=== PATIENT | female | born 1935 | race Caucasian/White ===

== ENCOUNTER 2016-12-07 09:11 | Outpatient (CLI) | payer MEDICARE, OTHER | END 2016-12-07 09:12 | disposition home or self-care (01) | DX: Z13.820 Encounter for screening for osteoporosis (principal); M85.88 Other specified disorders of bone density and structure, other site; N95.8 Other specified menopausal and perimenopausal disorders ==

== ENCOUNTER 2018-01-07 21:00 | Inpatient (IN) | payer MEDICARE, OTHER ==
[2018-01-07] MEDS ORDERED: ASPIRIN CHEW 81 MG TABLET PO STA (21:12)
[2018-01-07] MEDS ORDERED: MORPHINE 10 MG/ML VIAL IVP STA (21:49)
[2018-01-07 21:51] LABS: BASOPHILS % (AUTO) 0.2 %; EOSINOPHILS % (AUTO) 0.2 %; HGB - HEMOGLOBIN 14.6 g/dL (12.0-16.0); MEAN CORPUSCULAR HEMOGLOBIN 31.4 pg (27.0-31.0); MEAN CORPUSCULAR HGB CONC 33.9 g/dL (32.0-36.0); MEAN CORPUSCULAR VOLUME 92.7 fL (81.0-99.0); MEAN PLATELET VOLUME 8.6 fL (7.9-10.8); MONOCYTES % (AUTO) 2.3 %; NEUTROPHILS % (AUTO) 94.3 %; PLT - PLATELET COUNT 242 10^3/uL (130-450); RED BLOOD COUNT 4.66 10^6/uL (4.20-5.40); RED CELL DISTRIBUTION WIDTH 12.8 % (12.0-15.0); WHITE BLOOD COUNT 19.1 x10^3/uL (4.8-10.8)
[2018-01-07 21:53] LABS: ABNORMAL LYMPHS % (MANUAL) 0 %
[2018-01-07 22:14] LABS: ALBUMIN 4.3 g/dL (3.2-5.5); ALBUMIN/GLOBULIN RATIO 1.3 (1.0-2.2); BILIRUBIN,TOTAL 0.8 mg/dL (0.2-1.0); CALCIUM 8.6 mg/dL (8.5-10.3); CREATININE 0.8 mg/dL (0.4-1.0); TOTAL PROTEIN 7.5 g/dL (6.7-8.2)
[2018-01-07 22:18] LABS: BAND NEUTROPHILS % (MANUAL) 4 %; EOSINOPHILS # (MANUAL) 0.2 10^3/uL (0-0.7); LYMPHOCYTES % (MANUAL) 5 %; MONOCYTES # (MANUAL) 0.6 10^3/uL (0.0-1.0); NEUTROPHILS # (MANUAL) 17.4 10^3/uL (1.5-6.6); NEUTROPHILS % (MANUAL) 87 %
[2018-01-07 22:20] LABS: PLATELET ESTIMATE, MANUAL NORMAL (130-450,000) (NORMAL); PLATELET MORPHOLOGY RARE GIANT PLATELETS (NORMAL); RBC MORPHOLOGY (MULTIPLE) NORMAL APPEARANCE (NORMAL)
[2018-01-07 22:21] LABS: DIFFERENTIAL COMMENT MANUAL DIFFERENTIAL
--- NOTE | 2018-01-07 22:25 | XRAY Preliminary Report ---
Exam: XR CHEST 2 VIEW X-RAY IMPRESSION: Normal 2-view chest radiography. [facility] SITE ID: [id number]
--- NOTE | 2018-01-07 22:25 | XRAY Report ---
EXAM: CHEST RADIOGRAPHY EXAM DATE: 01/07/2018 10:09 PM. CLINICAL HISTORY: Chest pain. COMPARISON: 01/07/2018 chest x-ray. TECHNIQUE: 2 views. FINDINGS: Lungs/Pleura: No focal opacities evident. No pleural effusion. No pneumothorax. Normal volumes. Mediastinum: Heart and mediastinal contours are unremarkable. Other: None. IMPRESSION: Normal 2-view chest radiography. [facility] Referring Provider Line: [phone] SITE ID: [id number]
[2018-01-07] MEDS ORDERED: IOPAMIDOL-300 100 ML VIAL ONE (22:51)
[2018-01-07 22:52] LABS: BILIRUBIN,URINE NEGATIVE (NEGATIVE); GLUCOSE, URINE (UA) NEGATIVE (NEGATIVE); KETONES,URINE (UA) 15 mg/dL (NEGATIVE); LEUKOCYTE ESTERASE, URINE SMALL (NEGATIVE); NITRITE,URINE NEGATIVE (NEGATIVE); OCCULT BLOOD,URINE TRACE-LYSE (NEGATIVE); PROTEIN,URINE NEGATIVE (NEGATIVE); UROBILINOGEN,URINE 0.2 (NORMAL) E.U./dL (NORMAL)
[2018-01-07] MEDS ORDERED: IOPAMIDOL-300 100 ML VIAL IVP ONE (23:20)
[2018-01-07 23:21] LABS: CLARITY,URINE CLEAR (CLEAR)
[2018-01-07 23:23] LABS: BACTERIA,URINE Rare /HPF (None Seen); RBC,URINE 0-5 /HPF (0-5); SQUAMOUS EPITHELIAL CELL,UR RARE Squamous (<= Few)
--- NOTE | 2018-01-07 23:57 | CT Report ---
EXAM: CT ANGIOGRAM CHEST EXAM DATE: 01/07/2018 11:33 PM. CLINICAL HISTORY: Chest pain, elevated dimer. COMPARISON: None. TECHNIQUE: Routine helical imaging was performed through the chest in the pulmonary arterial phase. I V Contrast: 80 mL Isovue 300. Reconstructions: Coronal 3-D MIP reconstructions.Sagittal and coronal. In accordance with CT protocol optimization, one or more of the following dose reduction techniques w ere utilized for this exam: automated exposure control, adjustment of mA and/or KV based on patient s ize, or use of iterative reconstructive technique. FINDINGS: Pulmonary Arteries: Diagnostic quality: Adequate through the segmental arteries. No evidence for acute or chronic pulmona ry emboli. RV/LV is within normal limits. There is no interventricular septal bowing. There is no reflux of cont rast material in the IVC. Lungs/Pleura: There is a 6 x 4 mm nodule in the right lower lobe. Mild centrilobular emphysema seen. No lobar consolidation, pleural effusion or pneumothorax. Mediastinum: Normal. No cardiac enlargement or adenopathy. Thoracic Aorta: Unremarkable. Upper Abdomen: Unremarkable. Other: None. IMPRESSION: 1. No pulmonary embolism or acute airspace disease. 2. Right lower lobe 6 mm nodule. Recommend follow-up of the described nodule(s) according to the following guidelines: Fleischner Society Recommendations 2017 MacMahon et al. Radiology 2017 Solid Nodules-Low Risk Patients: <6 mm (single or multiple) - No routine follow-up* 6-8 mm (single) -CT at 6-12 months, then consider CT at 18-24 months 6-8mm (multiple) -CT at 3-6 months, then consider at CT 18-24 months >8 mm (single) -Consider CT, PET/CT, or tissue sampling at 3 months >8 mm (multiple) -CT at 3-6 months, then consider CT at 18-24 months Solid Nodules-High Risk Patients: <6 mm (single or multiple) -Optional CT at 12 months* 6-8 mm (single) -CT at 6-12 months, then CT at 18-24 months 6-8mm (multiple) -CT at 3-6 months, then CT at 18-24 months >8 mm (single) -Consider CT, PET/CT, or tissue sampling at 3 months >8 mm (multiple) -CT at 3-6 months, then at 18-24 months *Nodules < 6mm do not require routine follow-up, but suspicious nodule morphology, upper lobe locatio n, or both may warrant 12 month follow-up Subsolid nodules: <6 mm (single, GG or part solid) -No routine follow-up >=6 mm (single GG) -CT at 6-12 months to confirm, then CT q2 years until 5 years >=6 mm (single part solid) -CT at 3-6 months to confirm, if unchanged and solid <6mm, annual CT for 5 years <6 mm (multiple GG or part solid) -CT at 3-6 months. If stable, consider CT at 2 and 4 years >=6 mm (multiple GG or part solid) -CT at 3-6 months. Subsequent management based on most suspicious nodule(s). Consider follow-up at 2 and 4 years for certain suspicious nodules <6mm. If solid component develo ps or growth, consider resection. [facility] Referring Provider Line: [phone] SITE ID: [id number]
--- NOTE | 2018-01-08 00:06 | CT Report ---
EXAM: CT ABDOMEN AND PELVIS EXAM DATE: 01/07/2018 11:34 PM. CLINICAL HISTORY: Abd pain, elevated lipase, leukocytosis,. COMPARISONS: 08/17/2006 CT. TECHNIQUE: Routine helical CT imaging was performed through the abdomen and pelvis. IV contrast: Yes. Enteric contrast: No. Reconstructions: Coronal and sagittal. In accordance with CT protocol optimization, one or more of the following dose reduction techniques w ere utilized for this exam: automated exposure control, adjustment of mA and/or KV based on patient s ize, or use of iterative reconstructive technique. FINDINGS: Lung Bases: Unremarkable. Liver: Normal. No masses. Gallbladder/Bile Ducts: Unremarkable. Spleen: Normal. Pancreas: There is a 1.9 x 1.2 cm cystic lesion within the tail of the pancreas and a second 1.2 x 1. 2 cm lesion distally. Mild peripancreatic inflammatory stranding present. Adrenal Glands: Normal. Kidneys: Images acquired during the renal excretory phase. There is no hydronephrosis or obvious guy l mass. Peritoneal Cavity/Bowel: Normal. No free fluid, free air or adenopathy. No masses or acute inflammato ry process. No evidence of appendicitis. Pelvic Organs: The uterus has been removed. No pelvic mass, lymphadenopathy or fluid collections. Vasculature: No aneurysms or other significant abnormality. Bones: No significant abnormality. Other: None. IMPRESSION: 1. Pancreatic head pancreatitis. 2. There are 2 cystic lesions within the pancreatic tail possibly secondary to dilated pancreatic franc t branches. Pancreas MRI/MRCP recommended for further characterization. [facility] Referring Provider Line: [phone] SITE ID: [id number]
--- NOTE | 2018-01-08 00:06 | CT Preliminary Report ---
Exam: CT ABDOMEN/PELVIS W/O IMPRESSION: 1. Pancreatic head pancreatitis. 2. There are 2 cystic lesions within the pancreatic tail possibly secondary to dilated pancreatic franc t branches. Pancreas MRI/MRCP recommended for further characterization. [facility] SITE ID: [id number]
[2018-01-08] MEDS ORDERED: SODIUM CHLORIDE 0.9% 1,000 ML IV ONE (00:09)
--- NOTE | 2018-01-08 00:16 | ED Physician Documentation ---
PD HPI CHEST PAIN - Stated complaint Stated Complaint: CHEST PX - Chief complaint Chief Complaint: Cardiac - History obtained from History obtained from: Patient, Family - History of Present Illness Timing - onset: Today Timing - onset during: Rest Timing - details: Gradual onset, Still present Quality: Pressure, Aching, Sharp Location: Left chest, Right chest Radiation: Back Worsened by: No: Exertion, Inspiration Associated symptoms: No: Shortness of air, Diaphoresis, Nausea, Vomiting, Feeling faint / dizzy Similar symptoms before: Has not had sx before Recently seen: Not recently seen - Additional information Additional information: Patient is an 82 year old female with a history of htn who is presenting to the emergency department for chest and back pain. Patient states that the pain started earlier this afternoon when she was visiting [place] for a anniversary. The pain was in the back and the left chest that radiated across to the right. Patient states that the pain has persisted throughout the day so she came in for evaluation. Review of Systems Constitutional: denies: Fever, Chills Eyes: reports: Reviewed and negative Ears: reports: Reviewed and negative Nose: reports: Reviewed and negative Respiratory: denies: Dyspnea, Cough GI: reports: Abdominal Pain, Nausea. 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 HEENT: Cataracts - Present Medications Home Medications: Ambulatory Orders Medication Instructions Recorded Confirmed Levothyroxine [Synthroid] 25 mcg PO QDAC 01/08/18 Losartan [Cozaar] 25 mg PO BID 01/08/18 - Allergies Allergies/Adverse Reactions: Allergies Allergy/AdvReac Type Severity Reaction Status Date / Time No Known Drug Allergies Allergy Verified 01/07/18 21:15 - Social History Does the pt smoke?: No Smoking Status: Never smoker Does the pt drink ETOH?: No Does the pt have substance abuse?: No - Immunizations Immunizations are current?: Yes PD ED PE NORMAL - Vitals Vital signs reviewed: Yes - General General: Alert and oriented X 3 - HEENT HEENT: Atraumatic - Neck Neck: No JVD - Cardiac Cardiac: RRR, No murmur - Derm Derm: Normal color - Extremities Extremities: No edema, No calf tenderness / cord - Neuro Neuro: Alert and oriented X 3, No motor deficit Eye Opening: Spontaneous - Psych Psych: Normal mood PD ED PE EXPANDED - General General: Alert, In Pain - Respiratory Respiratory: No: Wheezing, Rhonchi - Abdomen Abdomen: Tender to palpation, RUQ, Epigastric, LUQ. No: Rebound Results - Vitals Vitals: Vital Signs - 24 hr 01/07/18 01/07/18 01/07/18 21:14 22:10 22:49 Temperature 36.7 C Heart Rate 71 59 L 59 L Respiratory 19 12 13 Rate Blood Pressure 234/81 H 189/79 H 175/129 H O2 Saturation 99 96 97 01/08/18 00:06 Temperature Heart Rate 59 L Respiratory 15 Rate Blood Pressure 163/71 H O2 Saturation 95 Oxygen O2 Source Room air - EKG (time done) 2119 Rate: Rate (enter#) (63) Rhythm: NSR [place]: Normal Intervals: Normal CT QRS: Normal Ischemia: Normal ST segments Compare to prior EKG: Old EKG unavailable - Labs Labs: Laboratory Tests 01/07/18 01/07/18 01/07/18 21:25 21:25 21:25 WBC 19.1 H RBC 4.66 Hgb 14.6 Hct 43.2 MCV 92.7 MCH 31.4 H MCHC 33.9 RDW 12.8 Plt Count 242 MPV 8.6 Neut # Not Reportable Lymph # Not Reportable Lee # Not Reportable Eos # Not Reportable Baso # Not Reportable Absolute Nucleated RBC Not Reportable Total Counted 100 Band Neuts % (Manual) 4 Abnorm Lymph % (Manual) 0 Nucleated RBC % Not Reportable Neutrophils # (Manual) 17.4 H Lymphocytes # (Manual) 1.0 L Monocytes # (Manual) 0.6 Eosinophils # (Manual) 0.2 Basophils # (Manual) 0.0 Differential Comment MANUAL DIFFERENTIAL WBC Morphology 1+ HYPERSEG NEUT Platelet Estimate NORMAL (130-450,000) Platelet Morphology RARE GIANT PLATELETS RBC Morph Micro Appear NORMAL APPEARANCE D-Dimer Sodium 129 L Potassium 3.5 Chloride 94 L Carbon Dioxide 23 Anion Gap 12.0 BUN 13 Creatinine 0.8 Estimated GFR (MDRD) 69 L Glucose 159 H Calcium 8.6 Total Bilirubin 0.8 AST 28 ALT 26 Alkaline Phosphatase 66 Troponin I < 0.04 B-Natriuretic Peptide Total Protein 7.5 Albumin 4.3 Globulin 3.2 Albumin/Globulin Ratio 1.3 Lipase 4464 H Urine Color Urine Clarity Urine pH Ur Specific [place] Urine Protein Urine Glucose (UA) Urine Ketones Urine Occult Blood Urine Nitrite Urine Bilirubin Urine Urobilinogen Ur Leukocyte Esterase Urine RBC Urine WBC Ur Squamous Epith Cells Urine Bacteria Ur Microscopic Review Urine Culture Comments 01/07/18 01/07/18 01/07/18 21:25 21:25 22:42 WBC RBC Hgb Hct MCV MCH MCHC RDW Plt Count MPV Neut # Lymph # Lee # Eos # Baso # Absolute Nucleated RBC Total Counted Band Neuts % (Manual) Abnorm Lymph % (Manual) Nucleated RBC % Neutrophils # (Manual) Lymphocytes # (Manual) Monocytes # (Manual) Eosinophils # (Manual) Basophils # (Manual) Differential Comment WBC Morphology Platelet Estimate Platelet Morphology RBC Morph Micro Appear D-Dimer 589.3 H Sodium Potassium Chloride Carbon Dioxide Anion Gap BUN Creatinine Estimated GFR (MDRD) Glucose Calcium Total Bilirubin AST ALT Alkaline Phosphatase Troponin I B-Natriuretic Peptide 76 Total Protein Albumin Globulin Albumin/Globulin Ratio Lipase Urine Color YELLOW Urine Clarity CLEAR Urine pH 7.0 Ur Specific [place] 1.015 Urine Protein NEGATIVE Urine Glucose (UA) NEGATIVE Urine Ketones 15 H Urine Occult Blood TRACE-LYSE Urine Nitrite NEGATIVE Urine Bilirubin NEGATIVE Urine Urobilinogen 0.2 (NORMAL) Ur Leukocyte Esterase SMALL H Urine RBC 0-5 Urine WBC >25 H Ur Squamous Epith Cells RARE Squamous Urine Bacteria Rare Ur Microscopic Review INDICATED Urine Culture Comments INDICATED - Rads (name of study) ct angio chest Radiology: Final report received (no PE) Ct abd pelvis Radiology: Final report received (pancreatitis with pancreatic cyst) PD MEDICAL DECISION MAKING - ED course Complexity details: reviewed old records, reviewed results, re-evaluated patient , considered differential, d/w patient, d/w family, d/w [employer] business [employer] consultant ED course: patient was seen and examined at bedside. Iv access was gained and labs were drawn. ekg was performed and showed normal sinus. Patient was treated with aspirin for pain. When patient's diagnostics came back patient's d-dimer was elevated. patient's pain persisted and patient was treated with morphine. CT angio was ordered. Patient was also found to have elevated lipase so CT abd pelvis was also ordered. Patient's findings were consistent with pancreatitis. Patient was treated with a fluid bolus, but did not require further pain medication. Hospitalist was contacted and the case was discussed with her. Patient was admitted to the hospital for further evaluation and care. Departure - Departure Disposition: 66 [facility] DC/Xfer Clinical Impression: Pancreatitis Condition: Stable
--- NOTE | 2018-01-08 00:45 | HISTORY & PHYSICAL EXAMINATION ---
Chief Complaint - Chief Complaint Chief Complaint: chest and back pain History of Present Illness - Admitted From Admitted From:: home - History Obtained From History obtained from: patient, , ED physician Exam Limitations: none noted - History of Present Illness HPI Comment/Other: Mrs. Dora Del Rio is a very pleasant 82-year-old female who was vacationing with her in [facility] earlier today, celebrating their 60th anniversary, which she began to have back pain which did not go away. The patient's was concerned and suggested that they return to the [place] a day early in the patient presented to [facility] emergency department with these complaints. A workup found her to have a lipase in excess of 4000 and a CAT scan of the abdomen found to cystic lesions in the head of the pancreas and generalized inflammation in the pancreas suggestive of pancreatitis. The patient will be admitted to a medical surgical bed, given IV fluid replacement, and her electrolytes will be corrected.We will start her on a soft diet tomorrow if she feels up to it. 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 - Substance History Use: Uses substance without health or social issues: NONE Abuse: Recurrent use of substance despite neg consequences: NONE Dependence: Experiences withdrawal or developed tolerances: NONE - POLST Patient has POLST: Yes POLST Status: DNR Meds/Allgy - Allergies Allergies/Adverse Reactions: Allergies Allergy/AdvReac Type Severity Reaction Status Date / Time No Known Drug Allergies Allergy Verified 01/07/18 21:15 Review of Systems - Constitutional Constitutional: reports: Poor appetite. denies: Fever, Chills, Night sweats - Eyes Eyes: denies: Pain, Blurred vision, Vision loss, Dipolpia - Ears, Nose & Throat Ears, Nose & Throat: denies: Ear pain, Tinnitus, Vertigo, Nasal pain, Nosebleeds , Sore throat - Cardiovascular Cariovascular: reports: Chest pain. denies: Irregular heart rate, Palpitations , Edema, Syncope - Respiratory Respiratory: denies: Cough, Sputum production, Wheezing, Hemoptysis, Orthopnea, SOB at rest, SOB with exertion - Gastrointestinal Gastrointestinal: reports: Abdominal pain, Nausea. denies: Abdominal distention , Constipation, Diarrhea, Change in bowel habits, Rectal bleeding - Genitourinary Genitourinary: denies: Dysuria, Frequency, Urgency, Hematuria - Musculoskeletal Musculoskeletal: reports: Back pain. denies: Muscle pain, Muscle aches, Stiffness, Muscle weakness - Integumentary Integumentary: denies: Rash, Pruritis, Lesions, Dryness - Neurological Neurological: denies: General weakness, Focal weakness, Headache, Dizziness - Psychiatric Psychiatric: denies: Depression, Anxiety, Suicidal, Hallucinations - Endocrine Endocrine: denies: Polyuria, Polydypsia, Polyphagia - Hematologic/Lymphatic Hematologic/Lymphatic: denies: Anemia, Bruising, Petechiae, Blood clots, Lymphadenopathy, Bleeding tendencies - All Other Systems All Other Systems: reports: Reviewed and negative Exam - Vital Signs Reviewed Vital Signs: Yes Vital Signs: Vital Signs x48h Temp Pulse Resp BP Pulse Ox 01/08/18 00:06 59 L 15 163/71 H 95 01/07/18 22:49 59 L 13 175/129 H 97 01/07/18 22:10 59 L 12 189/79 H 96 01/07/18 21:14 36.7 C 71 19 234/81 H 99 - Physical Exam General Appearance: positive: No acute distress, Alert, Anxious Eyes Bilateral: positive: Normal inspection, PERRL, EOMI, No lid inflammation, Conjunctivae nml, No scleral icterus ENT: positive: ENT inspection nml, Pharynx nml, No signs of dehydration Neck: positive: Nml inspection, Thyroid nml, No JVD, Trachea midline. negative : Thyromegaly Respiratory: positive: Chest non-tender, No respiratory distress, Breath sounds nml. negative: Wheezes, Rales, Rhonchi Cardiovascular: positive: Regular rate & rhythm, No murmur, No gallop Peripheral Pulses: positive: 1+ Abdomen: positive: No organomegaly, Nml bowel sounds, No distention, Tenderness (mild). negative: Guarding, Rebound Back: positive: Nml inspection. negative: CVA tenderness (R), CVA tenderness (L ) Skin: positive: Color nml, No rash, Warm, Dry. negative: Cyanosis Extremities: positive: Non-tender, Full ROM, Nml appearance, No pedal edema Neurologic/Psychiatric: positive: Oriented x3, CN's nml (2-12), Motor nml, Sensation nml, Mood/affect nml Conclusion/Plan - Problem List (1) Pancreatitis Conclusion/Plan: The patient's chief complaint has been back pain with some chest pain. She says the pain is a little bit better at this time but she is diagnosed with pancreatitis. We will admit her to medical surgical bed, give her IV fluids, and restart her on a soft diet sometime tomorrow afternoon if she remains stable. At this time it does not appear as if there is necrotizing pancreatitis and so we will continue to monitor. (2) Hypertension Conclusion/Plan: The patient takes losartan and I have restarted this at 50 mg a day. I await pharmacy reconciliation of the patient's other medications. (3) Hypothyroidism Conclusion/Plan: We will wait until we have the dosage before we restart the patient's levothyroxine. At this time she does not appear to be hyper or hypothyroid. - Lab Results Lab results reviewed: Yes Fish Bones: 01/07/18 21:25 01/07/18 21:25 - Diagnostic Imaging Results Diagnostic Imaging Results: positive: Final report reviewed Diagnostic Imaging Results Comments: EXAM: CT ABDOMEN AND PELVIS EXAM DATE: 01/07/2018 11:34 PM. CLINICAL HISTORY: Abd pain, elevated lipase, leukocytosis,. COMPARISONS: 08/17/2006 CT. TECHNIQUE: Routine helical CT imaging was performed through the abdomen and pelvis. IV contrast: Yes. Enteric contrast: No. Reconstructions: Coronal and sagittal. In accordance with CT protocol optimization, one or more of the following dose reduction techniques were utilized for this exam: automated exposure control, adjustment of mA and/or KV based on patient size, or use of iterative reconstructive technique. FINDINGS: Lung Bases: Unremarkable. Liver: Normal. No masses. Gallbladder/Bile Ducts: Unremarkable. Spleen: Normal. Pancreas: There is a 1.9 x 1.2 cm cystic lesion within the tail of the pancreas and a second 1.2 x 1.2 cm lesion distally. Mild peripancreatic inflammatory stranding present. Adrenal Glands: Normal. Kidneys: Images acquired during the renal excretory phase. There is no hydronephrosis or obvious renal mass. Peritoneal Cavity/Bowel: Normal. No free fluid, free air or adenopathy. No masses or acute inflammatory process. No evidence of appendicitis. Pelvic Organs: The uterus has been removed. No pelvic mass, lymphadenopathy or fluid collections. Vasculature: No aneurysms or other significant abnormality. Bones: No significant abnormality. Other: None. IMPRESSION: 1. Pancreatic head pancreatitis. 2. There are 2 cystic lesions within the pancreatic tail possibly secondary to dilated pancreatic duct branches. Pancreas MRI/MRCP recommended for further characterization. EXAM: CT ANGIOGRAM CHEST EXAM DATE: 01/07/2018 11:33 PM. CLINICAL HISTORY: Chest pain, elevated dimer. COMPARISON: None. TECHNIQUE: Routine helical imaging was performed through the chest in the pulmonary arterial phase. IV Contrast: 80 mL Isovue 300. Reconstructions: Coronal 3-D MIP reconstructions.Sagittal and coronal. In accordance with CT protocol optimization, one or more of the following dose reduction techniques were utilized for this exam: automated exposure control, adjustment of mA and/or KV based on patient size, or use of iterative reconstructive technique. FINDINGS: Pulmonary Arteries: Diagnostic quality: Adequate through the segmental arteries. No evidence for acute or chronic pulmonary emboli. RV/LV is within normal limits. There is no interventricular septal bowing. There is no reflux of contrast material in the IVC. Lungs/Pleura: There is a 6 x 4 mm nodule in the right lower lobe. Mild centrilobular emphysema seen. No lobar consolidation, pleural effusion or pneumothorax. Mediastinum: Normal. No cardiac enlargement or adenopathy. Thoracic Aorta: Unremarkable. Upper Abdomen: Unremarkable. Other: None. IMPRESSION: 1. No pulmonary embolism or acute airspace disease. 2. Right lower lobe 6 mm nodule. Recommend follow-up of the described nodule(s) according to the following guidelines: Fleischner Society Recommendations 2017 MacMahon et al. Radiology 2017 Solid Nodules-Low Risk Patients: <6 mm (single or multiple) - No routine follow-up* 6-8 mm (single) -CT at 6-12 months, then consider CT at 18-24 months 6-8mm (multiple) -CT at 3-6 months, then consider at CT 18-24 months >8 mm (single) -Consider CT, PET/CT, or tissue sampling at 3 months >8 mm (multiple) -CT at 3-6 months, then consider CT at 18-24 months Solid Nodules-High Risk Patients: <6 mm (single or multiple) -Optional CT at 12 months* 6-8 mm (single) -CT at 6-12 months, then CT at 18-24 months 6-8mm (multiple) -CT at 3-6 months, then CT at 18-24 months >8 mm (single) -Consider CT, PET/CT, or tissue sampling at 3 months >8 mm (multiple) -CT at 3-6 months, then at 18-24 months *Nodules < 6mm do not require routine follow-up, but suspicious nodule morphology, upper lobe location, or both may warrant 12 month follow-up Subsolid nodules: <6 mm (single, GG or part solid) -No routine follow-up >=6 mm (single GG) -CT at 6-12 months to confirm, then CT q2 years until 5 years >=6 mm (single part solid) -CT at 3-6 months to confirm, if unchanged and solid <6mm, annual CT for 5 years <6 mm (multiple GG or part solid) -CT at 3-6 months. If stable, consider CT at 2 and 4 years >=6 mm (multiple GG or part solid) -CT at 3-6 months. Subsequent management based on most suspicious nodule(s). Consider follow-up at 2 and 4 years for certain suspicious nodules <6mm. If solid component develops or growth, consider resection. Core Measures - Anticipated LOS I expect patient to be DC'd or transferred within 96 hours.: Yes - DVT/VTE - Prophylaxis VTE/DVT Device ordered at admit?: Yes
[2018-01-08] MEDS ORDERED: PROCHLORPERAZINE 10 MG/2 ML VIAL IVP PRN (00:50)
[2018-01-08] MEDS ORDERED: HYDROmorphone 0.5 MG/0.5 ML SYRINGE IVP PRN (00:50)
[2018-01-08] MEDS: D5.45NS W/20 MEQ KCL 1,000 ML IV SCH ×3 (03:06→21:59)
[2018-01-08] MEDS: LOSARTAN 50 MG TABLET PO SCH ×2 (03:06→09:27)
[2018-01-08] MEDS: SODIUM CHLORIDE FLUSH 0.9% 10 ML SYRINGE IVP SCH ×3 (03:06→18:32)
[2018-01-08 05:29] LABS: HGB - HEMOGLOBIN 13.5 g/dL (12.0-16.0); MEAN CORPUSCULAR HEMOGLOBIN 31.1 pg (27.0-31.0); MEAN CORPUSCULAR VOLUME 94.3 fL (81.0-99.0); MEAN PLATELET VOLUME 8.4 fL (7.9-10.8); RED BLOOD COUNT 4.35 10^6/uL (4.20-5.40); WHITE BLOOD COUNT 14.5 x10^3/uL (4.8-10.8)
[2018-01-08 06:08] LABS: CALCIUM 7.6 mg/dL (8.5-10.3); CREATININE 0.6 mg/dL (0.4-1.0)
[2018-01-08] MEDS: SODIUM CHLORIDE 1 GM TABLET PO SCH ×2 (07:12→09:23)
--- NOTE | 2018-01-08 08:19 | PROVIDER PROGRESS NOTE ---
Assessment/Plan - Problem List (1) Pancreatitis Qualifiers: Chronicity: acute Pancreatitis type: unspecified pancreatitis type Assessment/Plan: The patient was celebrating her wedding anniversary with her Solo in [place] and had an acute onset of flank, and abdominal pain. An MRCP was completed and showed edema adjacent to the pancreatic head compatible with acute pancreatitis, a 4.4 cm amorphous fluid collection that may related to pancreatic ductal disruption, and a potential sidebranch IPMNs. General surgery , Dr. Culver was called to review case and recommends an abdominal limited US study to rule our gall bladder involvement. Also to check triglycerides and cholesterol levels. Plan: Follow recommendations, keep on a CL diet, IVFs, hold home meds, and review again tomorrow. (2) Hypertension Assessment/Plan: The patient has a history of this and takes Losartan at home. A summary of drug -induced acute pancreatitits based on drug class shows Larsartan and Alendronate as part of this list, so they have been on hold. Her blood pressures have been elevated today (148/63), so scheduled IV hydralazine has been added. Plan: Continue current plan, obtain a bedside echocardiogram to determine which antihypertensive medication to use based on results. Monitor vital signs. (3) Hypothyroidism Assessment/Plan: The patient has a known history of this and normally takes Synthroid at home. A TSH is pending, Synthroid is on hold until results come back. Plan: Continue home dose if TSH is WNL. - Current Meds Current Meds: Current Medications Generic Name Dose Route Start Last Admin Trade Name Freq PRN Reason Stop Dose Admin Potassium Chloride/Dextrose/Sod Cl 1,000 mls @ 125 mls/hr 01/08/18 01:00 03:06 D5.45ns W/20 Meq Kcl IV 125 mls/hr .Q8H MAYO Administration Losartan Potassium 50 mg 01/08/18 01:00 01/08/18 03:06 Cozaar PO 50 mg DAILY MAYO Administration Sodium Chloride 10 ml 01/08/18 01:00 01/08/18 03:06 Normal Saline Flush 0.9% IVP 10 ml 0100,[id number],1700 MAYO Administration Sodium Chloride 1 gm 01/08/18 07:00 01/08/18 07:12 Salt Tab PO 1 gm DAILY MAYO Administration - Lab Result Lab results reviewed: Yes Fish Bone Diagrams: 01/09/18 05:45 01/09/18 05:45 - EKG Results EKG Interpreted Independently: Yes EKG Comparison: Unchanged from prior EKG - Diagnostic Imaging Results Diagnostic Imaging Results: Prelim report reviewed, Final report reviewed Diagnostic Imaging Results Comments: EXAM: CT ABDOMEN AND PELVIS EXAM DATE: 01/07/2018 11:34 PM. CLINICAL HISTORY: Abd pain, elevated lipase, leukocytosis,. COMPARISONS: 08/17/2006 CT. TECHNIQUE: Routine helical CT imaging was performed through the abdomen and pelvis. IV contrast: Yes. Enteric contrast: No. Reconstructions: Coronal and sagittal. In accordance with CT protocol optimization, one or more of the following dose reduction techniques were utilized for this exam: automated exposure control, adjustment of mA and/or KV based on patient size, or use of iterative reconstructive technique. FINDINGS: Lung Bases: Unremarkable. Liver: Normal. No masses. Gallbladder/Bile Ducts: Unremarkable. Spleen: Normal. Pancreas: There is a 1.9 x 1.2 cm cystic lesion within the tail of the pancreas and a second 1.2 x 1.2 cm lesion distally. Mild peripancreatic inflammatory stranding present. Adrenal Glands: Normal. Kidneys: Images acquired during the renal excretory phase. There is no hydronephrosis or obvious renal mass. Peritoneal Cavity/Bowel: Normal. No free fluid, free air or adenopathy. No masses or acute inflammatory process. No evidence of appendicitis. Pelvic Organs: The uterus has been removed. No pelvic mass, lymphadenopathy or fluid collections. Vasculature: No aneurysms or other significant abnormality. Bones: No significant abnormality. Other: None. IMPRESSION: 1. Pancreatic head pancreatitis. 2. There are 2 cystic lesions within the pancreatic tail possibly secondary to dilated pancreatic duct branches. Pancreas MRI/MRCP recommended for further characterization. EXAM: CT ANGIOGRAM CHEST EXAM DATE: 01/07/2018 11:33 PM. CLINICAL HISTORY: Chest pain, elevated dimer. COMPARISON: None. TECHNIQUE: Routine helical imaging was performed through the chest in the pulmonary arterial phase. IV Contrast: 80 mL Isovue 300. Reconstructions: Coronal 3-D MIP reconstructions.Sagittal and coronal. In accordance with CT protocol optimization, one or more of the following dose reduction techniques were utilized for this exam: automated exposure control, adjustment of mA and/or KV based on patient size, or use of iterative reconstructive technique. FINDINGS: Pulmonary Arteries: Diagnostic quality: Adequate through the segmental arteries. No evidence for acute or chronic pulmonary emboli. RV/LV is within normal limits. There is no interventricular septal bowing. There is no reflux of contrast material in the IVC. Lungs/Pleura: There is a 6 x 4 mm nodule in the right lower lobe. Mild centrilobular emphysema seen. No lobar consolidation, pleural effusion or pneumothorax. Mediastinum: Normal. No cardiac enlargement or adenopathy. Thoracic Aorta: Unremarkable. Upper Abdomen: Unremarkable. Other: None. IMPRESSION: 1. No pulmonary embolism or acute airspace disease. 2. Right lower lobe 6 mm nodule. Recommend follow-up of the described nodule(s) according to the following guidelines: Fleischner Society Recommendations 2017 MacMahon et al. Radiology 2017 Solid Nodules-Low Risk Patients: <6 mm (single or multiple) - No routine follow-up* 6-8 mm (single) -CT at 6-12 months, then consider CT at 18-24 months 6-8mm (multiple) -CT at 3-6 months, then consider at CT 18-24 months >8 mm (single) -Consider CT, PET/CT, or tissue sampling at 3 months >8 mm (multiple) -CT at 3-6 months, then consider CT at 18-24 months Solid Nodules-High Risk Patients: <6 mm (single or multiple) -Optional CT at 12 months* 6-8 mm (single) -CT at 6-12 months, then CT at 18-24 months 6-8mm (multiple) -CT at 3-6 months, then CT at 18-24 months >8 mm (single) -Consider CT, PET/CT, or tissue sampling at 3 months >8 mm (multiple) -CT at 3-6 months, then at 18-24 months *Nodules < 6mm do not require routine follow-up, but suspicious nodule morphology, upper lobe location, or both may warrant 12 month follow-up Subsolid nodules: <6 mm (single, GG or part solid) -No routine follow-up >=6 mm (single GG) -CT at 6-12 months to confirm, then CT q2 years until 5 years >=6 mm (single part solid) -CT at 3-6 months to confirm, if unchanged and solid <6mm, annual CT for 5 years <6 mm (multiple GG or part solid) -CT at 3-6 months. If stable, consider CT at 2 and 4 years >=6 mm (multiple GG or part solid) -CT at 3-6 months. Subsequent management based on most suspicious nodule(s). Consider follow-up at 2 and 4 years for certain suspicious nodules <6mm. If solid component develops or growth, consider resection. - Additional Planning Condition/Complexity: Guarded Consult/Specialty: Surgery (Dr. Jordy Culver via phone.) Plan Discussed with:: Patient, Spouse Time Spent: 31-60 minutes Subjective - Subjective Patient Reports: Resting Comfortably, No Complaints Nursing Reports: No Complaints Objective Vital Signs: Vital Signs - 24 hr 01/08/18 01/08/18 01/08/18 01:06 01:27 06:16 Temperature 36.5 C Heart Rate 69 Heart Rate [ 100 Brachial] Respiratory 13 15 Rate Blood Pressure 171/69 H Blood Pressure 188/73 H 162/57 H [Left Brachial artery] O2 Saturation 99 100 Oxygen O2 Source Room air I&O (Last 24 Hrs): Intake and Output Totals x24h 01/06/18 01/07/18 01/08/18 23:59 23:59 23:59 Intake Total 500 Balance 500 General: Alert, Oriented x3, Cooperative HEENT: Atraumatic, PERRLA, EOMI, Mucous membr. moist/pink Neck: Supple, No JVD Lymphatic: no adenopathy Neuro: Alert, Non Focal, CN 2-12 Grossly Intact, Oriented Times 3 Cardiovascular: Regular rate, Normal S1, Normal S2 Respiratory: Chest non-tender, No respiratory distress, Breath sounds nml Abdomen: Normal bowel sounds, No hepatospenomegaly, No masses Extremities: No clubbing, No cyanosis, No edema, Normal pulses, No tenderness/ swelling Skin: No rashes, No breakdown, No significant lesion - Results Results: Laboratory Results WBC 14.5 x10^3/uL (4.8-10.8) H 01/08/18 05:11 RBC 4.35 10^6/uL (4.20-5.40) 01/08/18 05:11 Hgb 13.5 g/dL (12.0-16.0) 01/08/18 05:11 Hct 41.0 % (37.0-47.0) 01/08/18 05:11 MCV 94.3 fL (81.0-99.0) 01/08/18 05:11 MCH 31.1 pg (27.0-31.0) H 01/08/18 05:11 MCHC 33.0 g/dL (32.0-36.0) 01/08/18 05:11 RDW 13.0 % (12.0-15.0) 01/08/18 05:11 Plt Count 211 10^3/uL (130-450) 01/08/18 05:11 MPV 8.4 fL (7.9-10.8) 01/08/18 05:11 Neut # Not Reportable 01/07/18 21:25 Lymph # Not Reportable 01/07/18 21:25 [place] # Not Reportable 01/07/18 21:25 Eos # Not Reportable 01/07/18 21:25 Baso # Not Reportable 01/07/18 21:25 Absolute Nucleated RBC Not Reportable 01/07/18 21:25 Total Counted 100 01/07/18 21:25 Band Neuts % (Manual) 4 % (0-10) 01/07/18 21:25 Abnorm Lymph % (Manual) 0 % 01/07/18 21:25 Nucleated RBC % Not Reportable 01/07/18 21:25 Neutrophils # (Manual) 17.4 10^3/uL (1.5-6.6) H 01/07/18 21:25 Lymphocytes # (Manual) 1.0 10^3/uL (1.5-3.5) L 01/07/18 21:25 Monocytes # (Manual) 0.6 10^3/uL (0.0-1.0) 01/07/18 21:25 Eosinophils # (Manual) 0.2 10^3/uL (0-0.7) 01/07/18 21:25 Basophils # (Manual) 0.0 10^3/uL (0-0.1) 01/07/18 21:25 Differential Comment MANUAL DIFFERENTIAL 01/07/18 21:25 WBC Morphology 1+ HYPERSEG NEUT (NORMAL) 01/07/18 21:25 Platelet Estimate NORMAL (130-450,000) (NORMAL) 01/07/18 21:25 Platelet Morphology RARE GIANT PLATELETS (NORMAL) 01/07/18 21:25 RBC Morph Micro Appear NORMAL APPEARANCE (NORMAL) 01/07/18 21:25 D-Dimer 589.3 ng/mL (200.0-255.0) H 01/07/18 21:25 Sodium 129 mmol/L (135-145) L 01/08/18 05:11 Potassium 3.8 mmol/L (3.5-5.0) 01/08/18 05:11 Chloride 98 mmol/L (101-111) L 01/08/18 05:11 Carbon Dioxide 23 mmol/L (21-32) 01/08/18 05:11 Anion Gap 8.0 (6-13) 01/08/18 05:11 BUN 11 mg/dL (6-20) 01/08/18 05:11 Creatinine 0.6 mg/dL (0.4-1.0) 01/08/18 05:11 Estimated GFR (MDRD) 96 (>89) 01/08/18 05:11 Glucose 155 mg/dL (70-100) H 01/08/18 05:11 Calcium 7.6 mg/dL (8.5-10.3) L 01/08/18 05:11 Total Bilirubin 0.8 mg/dL (0.2-1.0) 01/07/18 21:25 AST 28 IU/L (10-42) 01/07/18 21:25 ALT 26 IU/L (10-60) 01/07/18 21:25 Alkaline Phosphatase 66 IU/L (42-121) 01/07/18 21:25 Troponin I < 0.04 ng/mL (<0.49) 01/07/18 21:25 B-Natriuretic Peptide 76 pg/mL (5-100) 01/07/18 21:25 Total Protein 7.5 g/dL (6.7-8.2) 01/07/18 21:25 Albumin 4.3 g/dL (3.2-5.5) 01/07/18 21:25 Globulin 3.2 g/dL (2.1-4.2) 01/07/18 21:25 Albumin/Globulin Ratio 1.3 (1.0-2.2) 01/07/18 21:25 Amylase 2237 U/L (28-100) H* 01/08/18 05:11 Lipase > 4800 U/L (22-51) H 01/08/18 05:11 Urine Color YELLOW 01/07/18 22:42 Urine Clarity CLEAR (CLEAR) 01/07/18 22:42 Urine pH 7.0 PH (5.0-7.5) 01/07/18 22:42 Ur Specific [place] 1.015 (1.002-1.030) 01/07/18 22:42 Urine Protein NEGATIVE mg/dL (NEGATIVE) 01/07/18 22:42 Urine Glucose (UA) NEGATIVE mg/dL (NEGATIVE) 01/07/18 22:42 Urine Ketones 15 mg/dL (NEGATIVE) H 01/07/18 22:42 Urine Occult Blood TRACE-LYSE (NEGATIVE) 01/07/18 22:42 Urine Nitrite NEGATIVE (NEGATIVE) 01/07/18 22:42 Urine Bilirubin NEGATIVE (NEGATIVE) 01/07/18 22:42 Urine Urobilinogen 0.2 (NORMAL) E.U./dL (NORMAL) 01/07/18 22:42 Ur Leukocyte Esterase SMALL (NEGATIVE) H 01/07/18 22:42 Urine RBC 0-5 /HPF (0-5) 01/07/18 22:42 Urine WBC >25 /HPF (0-5) H 01/07/18 22:42 Ur Squamous Epith Cells RARE Squamous (<= Few) 01/07/18 22:42 Urine Bacteria Rare /HPF (None Seen) 01/07/18 22:42 Ur Microscopic Review INDICATED 01/07/18 22:42 Urine Culture Comments INDICATED 01/07/18 22:42
[2018-01-08] MEDS: FAMOTIDINE 20 MG/50 ML 50 ML IV SCH ×2 (09:19→22:11)
[2018-01-08] MEDS: POLYETHYLENE GLYCOL 3350 17 GM PACKET PO SCH (09:23)
--- NOTE | 2018-01-08 13:50 | MRI Preliminary Report ---
Exam: MRI MRCP W/O IMPRESSION: Edema adjacent to pancreatic head compatible with acute pancreatitis. Scattered small pancreatic cysts, potential sidebranch IPMNs. A 4.4 cm amorphous fluid collection extending both cephalad and inferior to distal pancreatic duct co uld be related to pancreatic ductal disruption. Undulating margins are not typical for cystic neoplas [facility] SITE ID: [id number]
--- NOTE | 2018-01-08 14:29 | MRI Report ---
EXAM: MR ABDOMEN WITHOUT CONTRAST (MR CHOLANGIOPANCREATOGRAPHY) EXAM DATE: 01/08/2018 11:59 AM. CLINICAL HISTORY: Dilated common bile duct. COMPARISON: Abdominal CT 01/07/2018 and 08/17/2006. TECHNIQUE: Multiplanar breath-hold T1 and T2 sequences obtained through the abdomen on an MR scanner. Dedicated 2D and 3D MRCP sequences obtained through the biliary and pancreatic ducts. No intravenous contrast given. FINDINGS: Lung Bases: The lung bases are clear. Liver: The liver has normal size, morphology and signal. No evidence of mass. The intrahepatic bile d ucts appear normal. CBD: The extrahepatic ducts appear normal. The CBD is 6 mm in diameter. Gallbladder: The gallbladder is partially distended and appears normal with no wall thickening or sto ne. Pancreas: Normal 1-2 mm main pancreatic ductal diameter. Several small scattered cysts within the pancreas measuring up to 4 mm within pancreatic head. Amorphous fluid collection along the pancreatic tail measuring 4.4 cm craniocaudal by 1.9 cm AP by 2. 8 cm transverse. Potential communication with main pancreatic duct on series 401 image 11. The fluid collection is T2 hyperintense, but not as hyperintense as main pancreatic duct on series 1101 3-D MRC P source images. 3D MIP image 3, Series 1102 suggests disruption of pancreatic duct at the tail with adjacent fluid collection. Edema adjacent to pancreatic head. Spleen: The spleen appears normal. Kidneys and Adrenals: The kidneys appear normal with no mass or hydronephrosis. The adrenals appear n ormal. Bowel: The small bowel and colon appear normal with no inflammation or obstruction. Retroperitoneum: The retroperitoneal structures appear normal with no mass or lymphadenopathy. IMPRESSION: 1. Edema adjacent to pancreatic head compatible with acute pancreatitis. 2. Scattered small pancreatic cysts, measuring up to 4 mm in size. Potential sidebranch IPMNs. 3. A 4.4 cm amorphous fluid collection extending both cephalad and inferior to distal pancreatic duct could be related to pancreatic ductal disruption. Please see coronal 3D MIP image 3, series 1102. Un dulating margins are not typical for cystic neoplasm. [facility] Referring Provider Line: [phone] SITE ID: [id number]
[2018-01-08] MEDS ORDERED: hydrALAZINE INJ 20 MG/ML VIAL IVP SCH (17:00)
[2018-01-08 17:40] LABS: HB2 TOTAL 14.1 g/dL; HEMOGLOBIN A1C 0.61 g/dL; HEMOGLOBIN A1C % 6.1 % (4.6-6.2)
--- NOTE | 2018-01-08 17:54 | Ultrasound Preliminary Report ---
Exam: US ABDOMEN LIMITED IMPRESSION: 1. No cholelithiasis or sonographic evidence for acute cholecystitis. 2. Dilated CBD, 9 mm. [facility] SITE ID: [id number]
--- NOTE | 2018-01-08 17:54 | Ultrasound Report ---
EXAM: ABDOMEN ULTRASOUND LIMITED, RUQ EXAM DATE: 01/08/2018 05:23 PM. CLINICAL HISTORY: Gallstones. COMPARISON: MRCP 01/08/2018. Noncontrast CT abdomen pelvis 01/07/2018. TECHNIQUE: Real-time scanning was performed with static images obtained. FINDINGS: Liver: Normal parenchymal echotexture. Main portal vein flow: Hepatopetal. Gallbladder: Normal. No stones, wall thickening, or sonographic [place]'s sign. Biliary System: Dilated common bile duct measuring 9 mm (upper limits of normal 6 mm). No intrahepati c ductal dilatation. Right Kidney: 11.2 cm in length. Normal parenchymal echotexture. No visualized shadowing stones or hy dronephrosis. IMPRESSION: 1. No cholelithiasis or sonographic evidence for acute cholecystitis. 2. Dilated CBD, 9 mm. [facility] Referring Provider Line: [phone] SITE ID: [id number]
[2018-01-08 18:15] LABS: CALCIUM 7.5 mg/dL (8.5-10.3); CREATININE 0.6 mg/dL (0.4-1.0)
[2018-01-08] MEDS: hydrALAZINE INJ 20 MG/ML VIAL IVP SCH (18:31)
[2018-01-08] MEDS: SODIUM CHLORIDE FLUSH 0.9% 10 ML SYRINGE IVP PRN (18:32)
[2018-01-09] MEDS: hydrALAZINE INJ 20 MG/ML VIAL IVP SCH ×3 (01:03→12:26)
[2018-01-09] MEDS: D5.45NS W/20 MEQ KCL 1,000 ML IV SCH ×2 (01:10→05:40)
[2018-01-09] MEDS: SODIUM CHLORIDE FLUSH 0.9% 10 ML SYRINGE IVP SCH ×2 (01:10→10:38)
[2018-01-09] MEDS: SODIUM CHLORIDE FLUSH 0.9% 10 ML SYRINGE IVP PRN (05:21)
[2018-01-09 06:18] LABS: HGB - HEMOGLOBIN 13.6 g/dL (12.0-16.0); MEAN CORPUSCULAR HEMOGLOBIN 31.8 pg (27.0-31.0); MEAN CORPUSCULAR HGB CONC 33.3 g/dL (32.0-36.0); MEAN CORPUSCULAR VOLUME 95.3 fL (81.0-99.0); MEAN PLATELET VOLUME 8.5 fL (7.9-10.8); RED BLOOD COUNT 4.27 10^6/uL (4.20-5.40); RED CELL DISTRIBUTION WIDTH 13.1 % (12.0-15.0); WHITE BLOOD COUNT 10.5 x10^3/uL (4.8-10.8)
[2018-01-09 06:29] LABS: CALCIUM 7.9 mg/dL (8.5-10.3); CREATININE 0.5 mg/dL (0.4-1.0)
[2018-01-09] MEDS ORDERED: ALENDRONATE 70 MG TABLET PO SCH (06:30)
[2018-01-09 06:34] LABS: CHOL/HDL RATIO 3.8 (<4.4); CHOLESTEROL 219 mg/dL; HDL CHOLESTEROL 57 mg/dL; LDL CHOLESTEROL,CALCULATED 142 mg/dL; LDL/HDL RATIO 2.5 (<4.4); VLDL CHOLESTEROL 20 mg/dL
[2018-01-09] MEDS: SODIUM CHLORIDE 1 GM TABLET PO SCH ×2 (08:27→10:37)
[2018-01-09] MEDS: POLYETHYLENE GLYCOL 3350 17 GM PACKET PO SCH ×2 (08:27→10:37)
[2018-01-09] MEDS: FAMOTIDINE 20 MG/50 ML 50 ML IV SCH (08:27)
[2018-01-09] MEDS ORDERED: LOSARTAN 50 MG TABLET PO SCH (09:00)
[2018-01-09] MEDS ORDERED: LEVOTHYROXINE 25 MCG TABLET PO SCH (09:00)
[2018-01-09] MEDS ORDERED: NS W/20 MEQ KCL 1,000 ML IV SCH (10:00)
--- NOTE | 2018-01-09 12:18 | Discharge Plan ---
Discharge Plan Disposition: 01 Home, Self Care Condition: Good Prescriptions: amLODIPine [Norvasc] 5 mg PO DAILY #30 tablet Diet: Regular (low FAT) Activity Restrictions: No Restrictions Shower Restrictions: No Driving Restrictions: No Weight Bearing: Full Weight Instruction Topics: Cooking Tips Low Fat, Pancreatitis, Amlodipine, Flavor Add Low Fat Meals, ED Diet Low Fat Additional Instructions or Follow Up instructions: You were admitted for acute pancreatitis and treated with IV fluids, and your medications were held. You were started on a clear liquid diet that was advanced. You should remain on a low fat diet. A CT scan was performed at the time of admission that showed a small lesion in your lower right lung. The recommendation is to alert your PCP and repeat a CT scan in ~6 months. Imaging studies of your pancreas show no problems with your gall bladder. It also showed a small fluid collection/edema around the pancreatic head which is something that our General surgeon suggests to be followed up on with an abdominal limited ultrasound. Please stop your Losartan and exchange it with Norvasc daily based on echcardiogram results. Your thyroid level was normal, so keep taking your levothyroxine. Your cholesterol was elevated, but based on your risk factors, you are better off with out it. It may cause more harm than good. You should also stop your Fosamax, since it was on the list of medications to avoid in acute pancreatitis. Your primary doctor can decide when to resume this. An echocardiogram was completed due to changing your blood pressure pills. The left side of your heart was found to be normally functioning, but the right side was found to have high pressure, called pulmonary hypertension. The long-term medication for this is called Spironolactone. I did not feel comfortable starting this AND changing your regular blood pressure pill, so I will recommend this to your PCP to do out patient after your body has adjusted to the Norvasc. Please see your primary care provider within one week. No Smoking: If you smoke, Please STOP! Call for help. Follow-up with: Dionisio Dubois MD [Primary Care Provider] -
--- NOTE | 2018-01-09 12:22 | DISCHARGE SUMMARY ---
Discharge Summary Admit Date: 01/08/18 Discharge Date: 01/09/18 Discharging Provider: MAC Mendez Primary Care Provider: Dionisio Dubois Code Status: Do Not Attempt Resuscitation Condition at Discharge: Good Discharge Disposition: 01 Home, Self Care - DIAGNOSES Admission Diagnoses: Acute pancreatitis without necrosis or infection, unsp (K85.90) Essential (primary) hypertension (I10) Hypothyroidism, unspecified (E03.9) Discharge Diagnoses with Status of Each Condition: Acute pancreatitis (K85.90)- resolved. Hypertension (I10)- chronic, stable. New medication. Hypothyroidism (E03.9)- chronic, stable. Pulmonary hypertension (I27.20)- newly found on this admission, will recommend spironolactone. - HPI History of Present Illness: Dora Del Rio is a very pleasant 82-year-old white female who was vacationing with her in [facility] earlier today, celebrating their 60th anniversary, when she began to have back pain which did not go away. The patient's was concerned and suggested that they return to the [place] a day early. The patient presented to [facility] emergency department with these complaints. A workup found her to have a lipase in excess of 4000 and a CAT scan of the abdomen found to cystic lesions in the head of the pancreas and generalized inflammation in the pancreas suggestive of pancreatitis. The patient will be admitted to a medical surgical bed, given IV fluid replacement, and her electrolytes will be corrected. She will have bowel rest, and her diet will be advanced in pancreatic enzymes trend downward. General surgery may be consulted for their recommendations. - HOSPITAL COURSE Hospital Course: The following diagnoses were prevalent during this hospital stay: (1) Acute pancreatitis The patient was celebrating her wedding anniversary with her Solo in [place] and had an acute onset of flank, and abdominal pain. An MRCP was completed and showed edema adjacent to the pancreatic head compatible with acute pancreatitis, a 4.4 cm amorphous fluid collection that may related to pancreatic ductal disruption, and a potential sidebranch IPMNs. General surgery , Dr. Culver was called to review case and recommends an abdominal limited US study to rule our gall bladder involvement. An abdominal ultrasound was completed which showed a dilated common bile duct at 9 mm, otherwise no other findings. Triglycerides and cholesterol levels were acceptable and ruled out as a causative factor. (2) Hypertension The patient has a history of this and takes Losartan at home. A summary of drug -induced acute pancreatitits based on drug class shows Larsartan and Alendronate as part of this list, so they have been on hold. Her blood pressures were elevated (148/63), so scheduled IV hydralazine was given while inpatient and she was sent home on Norvasc 5mg daily as a substitute, with given instructions to stop the Losartan. (3) Hypothyroidism The patient has a known history of this and normally takes Synthroid at home. A TSH was check and was normal at 2.01, so Synthroid was continued at the normal dose. (4) Right lower lobe lung nodule Upon arrival to the ED a CT chest was completed and found a right lower lobe nodule that the patient had no prior knowledge of. She denies hemoptysis or recent PNA. She does not have a tobacco history. I gave recommendations for proper follow up upon discharge. (5) Moderate pulmonary HTN An echocardiogram was completed due to the patient having a prominent history of HTN and for completeness of care. The patient has abnormal right heart pressures and a RVSP at rest of 68mmHg. The proper treatment for this is to start Spironolactone 12.5mg daily and to increase to 25mg daily. I did not start this since her blood pressure medication was also changed and I did not want to cause her to fall from too many adjustments at once. (6)Osteoporosis The patient was recently prescribed Fosomax, which is now recommended to be stopped due to the potential of acute pancreatitis. She is also instructed to hold all other calcium supplements/vitamins until she sees her PCP as these may also contribute to acute pancreatitis. Disposition: The patient was anxious to be on her way at the time of discharge since it was her 's birthday. She was in stable condition and was transported via private car with planned follow ups. - ALLERGIES Allergies/Adverse Reactions: Allergies Allergy/AdvReac Type Severity Reaction Status Date / Time No Known Drug Allergies Allergy Verified 01/07/18 21:15 - MEDICATIONS Home Medications: Ambulatory Orders Medication Instructions Recorded Confirmed Aspirin 81 mg PO DAILY 01/08/18 01/08/18 Biotin 2,500 mcg PO DAILY 01/08/18 01/08/18 Levothyroxine [Synthroid] 50 mcg PO QDAC 01/08/18 01/08/18 amLODIPine [Norvasc] 5 mg PO DAILY #30 tablet 01/09/18 - PHYSICAL EXAM AT DISCHARGE General Appearance: positive: No acute distress, Alert Eyes Bilateral: positive: Normal inspection, PERRL, EOMI ENT: positive: ENT inspection nml, Pharynx nml, No signs of dehydration Neck: positive: Nml inspection, Thyroid nml, No JVD, Trachea midline Respiratory: positive: Chest non-tender, No respiratory distress, Breath sounds nml Cardiovascular: positive: Regular rate & rhythm, Systolic murmur, Decreased pulse(s) Peripheral Pulses: positive: 2+ Abdomen: positive: Non-tender, No organomegaly, Nml bowel sounds, No distention Back: positive: Nml inspection Skin: positive: No rash, Warm, Dry Extremities: positive: Non-tender, Full ROM, Pedal edema, Joint swelling Neurologic/Psychiatric: positive: Oriented x3, CN's nml (2-12), Motor nml, Sensation nml, Depressed mood/affect, Other (STM loss was evident.) Reflexes: Bicep (R): 2+, Bicep (L): 2+ - LABS Result Diagrams: 01/09/18 05:45 01/09/18 05:45 - DIAGNOSTIC IMAGING Diagnostic Imaging Results: Final report reviewed Diagnostic Imaging Results Comments: EXAM: CHEST RADIOGRAPHY EXAM DATE: 01/07/2018 10:09 PM. CLINICAL HISTORY: Chest pain. COMPARISON: 01/07/2018 chest x-ray. TECHNIQUE: 2 views. FINDINGS: Lungs/Pleura: No focal opacities evident. No pleural effusion. No pneumothorax. Normal volumes. Mediastinum: Heart and mediastinal contours are unremarkable. Other: None. IMPRESSION: Normal 2-view chest radiography. EXAM: CT ANGIOGRAM CHEST EXAM DATE: 01/07/2018 11:33 PM. CLINICAL HISTORY: Chest pain, elevated dimer. COMPARISON: None. TECHNIQUE: Routine helical imaging was performed through the chest in the pulmonary arterial phase. IV Contrast: 80 mL Isovue 300. Reconstructions: Coronal 3-D MIP reconstructions.Sagittal and coronal. In accordance with CT protocol optimization, one or more of the following dose reduction techniques were utilized for this exam: automated exposure control, adjustment of mA and/or KV based on patient size, or use of iterative reconstructive technique. FINDINGS: Pulmonary Arteries: Diagnostic quality: Adequate through the segmental arteries. No evidence for acute or chronic pulmonary emboli. RV/LV is within normal limits. There is no interventricular septal bowing. There is no reflux of contrast material in the IVC. Lungs/Pleura: There is a 6 x 4 mm nodule in the right lower lobe. Mild centrilobular emphysema seen. No lobar consolidation, pleural effusion or pneumothorax. Mediastinum: Normal. No cardiac enlargement or adenopathy. Thoracic Aorta: Unremarkable. Upper Abdomen: Unremarkable. Other: None. IMPRESSION: 1. No pulmonary embolism or acute airspace disease. 2. Right lower lobe 6 mm nodule. Recommend follow-up of the described nodule(s) according to the following guidelines: Fleischner Society Recommendations 2017 MacMahon et al. Radiology 2017 Solid Nodules-Low Risk Patients: <6 mm (single or multiple) - No routine follow- up* 6-8 mm (single) -CT at 6-12 months, then consider CT at 18-24 months 6-8mm (multiple) -CT at 3-6 months, then consider at CT 18-24 months >8 mm (single) -Consider CT, PET/CT, or tissue sampling at 3 months >8 mm (multiple) -CT at 3-6 months, then consider CT at 18-24 months Solid Nodules-High Risk Patients: <6 mm (single or multiple) -Optional CT at 12 months* 6-8 mm (single) -CT at 6-12 months, then CT at 18-24 months 6-8mm (multiple) -CT at 3-6 months, then CT at 18-24 months >8 mm (single) -Consider CT, PET/CT, or tissue sampling at 3 months >8 mm (multiple) -CT at 3-6 months, then at 18-24 months *Nodules < 6mm do not require routine follow-up, but suspicious nodule morphology, upper lobe location, or both may warrant 12 month follow-up Subsolid nodules: <6 mm (single, GG or part solid) -No routine follow-up >=6 mm (single GG) -CT at 6-12 months to confirm, then CT q2 years until 5 years >=6 mm (single part solid) -CT at 3-6 months to confirm, if unchanged and solid <6mm, annual CT for 5 years <6 mm (multiple GG or part solid) -CT at 3-6 months. If stable, consider CT at 2 and 4 years >=6 mm (multiple GG or part solid) -CT at 3-6 months. Subsequent management based on most suspicious nodule(s). Consider follow-up at 2 and 4 years for certain suspicious nodules <6mm. If solid component develops or growth, consider resection. EXAM: CT ABDOMEN AND PELVIS EXAM DATE: 01/07/2018 11:34 PM. CLINICAL HISTORY: Abd pain, elevated lipase, leukocytosis,. COMPARISONS: 08/17/2006 CT. TECHNIQUE: Routine helical CT imaging was performed through the abdomen and pelvis. IV contrast: Yes. Enteric contrast: No. Reconstructions: Coronal and sagittal. In accordance with CT protocol optimization, one or more of the following dose reduction techniques were utilized for this exam: automated exposure control, adjustment of mA and/or KV based on patient size, or use of iterative reconstructive technique. FINDINGS: Lung Bases: Unremarkable. Liver: Normal. No masses. Gallbladder/Bile Ducts: Unremarkable. Spleen: Normal. Pancreas: There is a 1.9 x 1.2 cm cystic lesion within the tail of the pancreas and a second 1.2 x 1.2 cm lesion distally. Mild peripancreatic inflammatory stranding present. Adrenal Glands: Normal. Kidneys: Images acquired during the renal excretory phase. There is no hydronephrosis or obvious renal mass. Peritoneal Cavity/Bowel: Normal. No free fluid, free air or adenopathy. No masses or acute inflammatory process. No evidence of appendicitis. Pelvic Organs: The uterus has been removed. No pelvic mass, lymphadenopathy or fluid collections. Vasculature: No aneurysms or other significant abnormality. Bones: No significant abnormality. Other: None. IMPRESSION: 1. Pancreatic head pancreatitis. 2. There are 2 cystic lesions within the pancreatic tail possibly secondary to dilated pancreatic duct branches. Pancreas MRI/MRCP recommended for further characterization. EXAM: MR ABDOMEN WITHOUT CONTRAST (MR CHOLANGIOPANCREATOGRAPHY) EXAM DATE: 01/08/2018 11:59 AM. CLINICAL HISTORY: Dilated common bile duct. COMPARISON: Abdominal CT 01/07/2018 and 08/17/2006. TECHNIQUE: Multiplanar breath-hold T1 and T2 sequences obtained through the abdomen on an MR scanner. Dedicated 2D and 3D MRCP sequences obtained through the biliary and pancreatic ducts. No intravenous contrast given. FINDINGS: Lung Bases: The lung bases are clear. Liver: The liver has normal size, morphology and signal. No evidence of mass. The intrahepatic bile ducts appear normal. CBD: The extrahepatic ducts appear normal. The CBD is 6 mm in diameter. Gallbladder: The gallbladder is partially distended and appears normal with no wall thickening or stone. Pancreas: Normal 1-2 mm main pancreatic ductal diameter. Several small scattered cysts within the pancreas measuring up to 4 mm within pancreatic head. Amorphous fluid collection along the pancreatic tail measuring 4.4 cm craniocaudal by 1.9 cm AP by 2.8 cm transverse. Potential communication with main pancreatic duct on series 401 image 11. The fluid collection is T2 hyperintense, but not as hyperintense as main pancreatic duct on series 1101 3- D MRCP source images. 3D MIP image 3, Series 1102 suggests disruption of pancreatic duct at the tail with adjacent fluid collection. Edema adjacent to pancreatic head. Spleen: The spleen appears normal. Kidneys and Adrenals: The kidneys appear normal with no mass or hydronephrosis. The adrenals appear normal. Bowel: The small bowel and colon appear normal with no inflammation or obstruction. Retroperitoneum: The retroperitoneal structures appear normal with no mass or lymphadenopathy. IMPRESSION: 1. Edema adjacent to pancreatic head compatible with acute pancreatitis. 2. Scattered small pancreatic cysts, measuring up to 4 mm in size. Potential sidebranch IPMNs. 3. A 4.4 cm amorphous fluid collection extending both cephalad and inferior to distal pancreatic duct could be related to pancreatic ductal disruption. Please see coronal 3D MIP image 3, series 1102. Undulating margins are not typical for cystic neoplasm. EXAM: ABDOMEN ULTRASOUND LIMITED, [facility] EXAM DATE: 01/08/2018 05:23 PM. CLINICAL HISTORY: Gallstones. COMPARISON: MRCP 01/08/2018. Noncontrast CT abdomen pelvis 01/07/2018. TECHNIQUE: Real-time scanning was performed with static images obtained. FINDINGS: Liver: Normal parenchymal echotexture. Main portal vein flow: Hepatopetal. Gallbladder: Normal. No stones, wall thickening, or sonographic Montenegro's sign. Biliary System: Dilated common bile duct measuring 9 mm (upper limits of normal 6 mm). No intrahepatic ductal dilatation. Right Kidney: 11.2 cm in length. Normal parenchymal echotexture. No visualized shadowing stones or hydronephrosis. IMPRESSION: 1. No cholelithiasis or sonographic evidence for acute cholecystitis. 2. Dilated CBD, 9 mm. ECHOCARDIOGRAM: 01/09/18 1. Mild concentric LV hypertrophy. 2. Overall LV systolic function is normal with an EF of 70-75%. 3. There is trace to mild mitral regurg. 4. Moderate pulmonary hypertension with an RVSP at rest of 68mmHg. - FOLLOW UP Follow Up: Disposition: 01 Home, Self Care Condition: Good Prescriptions: amLODIPine [Norvasc] 5 mg PO DAILY #30 tablet Diet: Regular (low FAT) Activity Restrictions: No Restrictions Shower Restrictions: No Driving Restrictions: No Weight Bearing: Full Weight Instruction Topics: Cooking Tips Low Fat, Pancreatitis, Amlodipine, Flavor Add Low Fat Meals, ED Diet Low Fat Additional Instructions or Follow Up instructions: You were admitted for acute pancreatitis and treated with IV fluids, and your medications were held. You were started on a clear liquid diet that was advanced. You should remain on a low fat diet. A CT scan was performed at the time of admission that showed a small lesion in your lower right lung. The recommendation is to alert your PCP and repeat a CT scan in ~6 months. Imaging studies of your pancreas show no problems with your gall bladder. It also showed a small fluid collection/edema around the pancreatic head which is something that our General surgeon suggests to be followed up on with an abdominal limited ultrasound. Please stop your Losartan and exchange it with Norvasc daily based on echcardiogram results. Your thyroid level was normal, so keep taking your levothyroxine. Your cholesterol was elevated, but based on your risk factors, you are better off with out it. It may cause more harm than good. You should also stop your Fosamax, since it was on the list of medications to avoid in acute pancreatitis. Your primary doctor can decide when to resume this. An echocardiogram was completed due to changing your blood pressure pills. The left side of your heart was found to be normally functioning, but the right side was found to have high pressure, called pulmonary hypertension. 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 I did not feel comfortable starting this AND changing your regular blood pressure pill, so I will recommend this to your PCP to do out patient after your body has adjusted to the Norvasc. Please see your primary care provider within one week. - TIME SPENT Time Spent in Discharge (Minutes): 60
[2018-01-09 14:25] LABS: AMYLASE 185 U/L (28-100); LIPASE 98 U/L (22-51)
[2018-01-09 15:28] VITALS: BP 158/63
== END 2018-01-09 15:45 | disposition home or self-care (01) | DRG 440 ==
LOC: ED 21:00 → MS3 01-08 00:50
PROVIDERS: ADMIT Hospitalist; ATTEND Hospitalist
DX: K85.90 Acute pancreatitis without necrosis or infection, unspecified (principal); I10 Essential (primary) hypertension; E03.9 Hypothyroidism, unspecified; I27.20 Pulmonary hypertension, unspecified; R91.8 Other nonspecific abnormal finding of lung field; Z66 Do not resuscitate; Z79.899 Other long term (current) drug therapy
CPT/HCPCS: 36415; 71046; 71275; 74176; 74181; 76705; 80048; 80053; 80061; 81001; 81003; 82150; 83036; 83690; 83721; 83735; 83880; 84443; 84478; 84484; 85025; 85379; 87086; 93005; 93306; 96374; 99284; 99285

== ENCOUNTER 2018-04-28 10:37 | Inpatient (IN) | payer MEDICARE, OTHER ==
--- NOTE | 2018-04-28 10:54 | ED Physician Documentation ---
PD HPI ABD PAIN - Stated complaint Stated Complaint: ABD PX - Chief complaint Chief Complaint: Abd Pain - History obtained from History obtained from: Patient, Family - History of Present Illness Timing - onset: Today (about 9 am, abrupt onset pain upper abd, with nausea.) Timing - duration: Hours (2) Timing - details: Abrupt onset, Still present Quality: Aching, Sharp, Pain Location: RUQ, Epigastric Radiation: Upper back Improved by: No: Position Worsened by: Palpation. No: Breathing, Position Associated symptoms: Nausea, Loss of appetite. No: Fever, Vomiting, Diarrhea, Chest pain, Near syncope / syncope Similar symptoms before: Diagnosis (Similar in December 2017 Dx with pancreatitis with cysts in pancreas. No gallstones nor gallbladder thickening. One of the pancreatic cysts is near pancreatic duct and mention in MRCP report that it could be physically impinging the duct. She improved in the hospital after couple days. She says she did see GI in followup in [place], with plan to repeat the MRCP in May to follow resolution. Has had normal diet without problems.) Recently seen: Clinic ([facility] [facility] couple months ago follow up to that admission. ), Emergency Dept (December 2017 with first time event similar to this) Review of Systems Constitutional: denies: Fever, Chills Nose: denies: Rhinorrhea / runny nose, Congestion Throat: denies: Sore throat Cardiac: denies: Chest pain / pressure Respiratory: denies: Cough GI: reports: Abdominal Pain (just this morning). denies: Abdominal Swelling, Vomiting, Diarrhea, Bloody / black stool : denies: Dysuria, Frequency Skin: denies: Rash, Lesions Musculoskeletal: denies: Back pain Neurologic: denies: Generalized weakness, Near syncope, Altered mental status Immunocompromised: denies: Immunocompromised PD PAST MEDICAL HISTORY - Past Medical History Cardiovascular: Hypertension Endocrine/Autoimmune: HyPOthyroidism HEENT: None Psych: Anxiety - Past Surgical History General: Appendectomy /DEDENTER: Other HEENT: Cataracts - Present Medications Home Medications: Ambulatory Orders Medication Instructions Recorded Confirmed Aspirin 81 mg PO DAILY 01/08/18 01/08/18 Biotin 2,500 mcg PO DAILY 01/08/18 01/08/18 Levothyroxine [Synthroid] 50 mcg PO QDAC 01/08/18 01/08/18 amLODIPine [Norvasc] 5 mg PO DAILY #30 tablet 01/09/18 - Allergies Allergies/Adverse Reactions: Allergies Allergy/AdvReac Type Severity Reaction Status Date / Time No Known Drug Allergies Allergy Verified 04/28/18 10:50 - Social History Does the pt smoke?: No Smoking Status: Never smoker Does the pt drink ETOH?: No Does the pt have substance abuse?: No - Family History Family history: reports: Non contributory. denies: Aortic aneursym, Aortic dissection - Immunizations Immunizations are current?: Yes - POLST Patient has POLST: Yes POLST Status: DNR PD ED PE NORMAL - Vitals Vital signs reviewed: Yes - General General: Alert and oriented X 3, Well developed/nourished, Other (appears in pain) - HEENT HEENT: PERRL (nonicteric), Pharynx benign - Neck Neck: Supple, no meningeal sign, No adenopathy - Cardiac Cardiac: RRR, No murmur - Respiratory Respiratory: Clear bilaterally - Abdomen Abdomen: Normal bowel sounds, Soft, Non distended, No organomegaly, Other ( tender with local guarding epigastric and RUQ area. ) - Female Female : Deferred - Rectal Rectal: Deferred - Back Back: No CVA TTP - Derm Derm: Normal color, Warm and dry - Extremities Extremities: No deformity, No tenderness to palpate, Normal ROM s pain, No edema , No calf tenderness / cord - Neuro Neuro: Alert and oriented X 3, No motor deficit, Normal speech Results - Vitals Vitals: Vital Signs - 24 hr 04/28/18 04/28/18 04/28/18 10:41 11:00 11:31 Temperature 36.2 C L Heart Rate 88 59 L 56 L Respiratory 18 16 14 Rate Blood Pressure 173/71 H 173/71 H 147/67 H O2 Saturation 100 100 100 04/28/18 04/28/18 12:50 13:14 Temperature Heart Rate 73 65 Respiratory 16 Rate Blood Pressure 144/63 H 142/60 H O2 Saturation 96 98 Oxygen O2 Source Room air - Labs Labs: Laboratory Tests 04/28/18 04/28/18 11:20 11:20 WBC 14.0 H RBC 5.08 Hgb 16.1 H Hct 47.4 H MCV 93.5 MCH 31.8 H MCHC 34.0 RDW 13.2 Plt Count 234 MPV 8.3 Neut # (Auto) 11.9 H Lymph # (Auto) 1.0 L Stephenson # (Auto) 0.8 Eos # (Auto) 0.1 Baso # (Auto) 0.1 Absolute Nucleated RBC 0.00 Nucleated RBC % 0.0 Sodium 131 L Potassium 4.0 Chloride 95 L Carbon Dioxide 27 Anion Gap 9.0 BUN 13 Creatinine 0.5 Estimated GFR (MDRD) 118 Glucose 122 H Calcium 8.8 Total Bilirubin 0.6 AST 26 ALT 26 Alkaline Phosphatase 57 Total Protein 7.6 Albumin 4.5 Globulin 3.1 Albumin/Globulin Ratio 1.5 Lipase > 4800 H PD MEDICAL DECISION MAKING - ED course Complexity details: reviewed old records, reviewed results, considered differential, d/w patient, d/w sap security consultant (GI at [facility], Dr. Dennison, who reviewed their chart notes (he is transmission superintendent, not the GI who saw patient) - suggested to treat symptomatically. Suggested not needing to get any imaging/ MRI (beyond the U/S already done to exclude gallbladder issues). Follow up in Clinic in near future as planned. He says their MRI in February showed similar 4 cm pseudocyst fluid.) - Sepsis Event Vital Signs: Vital Signs - 24 hr 04/28/18 04/28/18 04/28/18 10:41 11:00 11:31 Temperature 36.2 C L Heart Rate 88 59 L 56 L Respiratory 18 16 14 Rate Blood Pressure 173/71 H 173/71 H 147/67 H O2 Saturation 100 100 100 04/28/18 04/28/18 12:50 13:14 Temperature Heart Rate 73 65 Respiratory 16 Rate Blood Pressure 144/63 H 142/60 H O2 Saturation 96 98 Oxygen O2 Source Room air Departure - Departure Disposition: 66 [facility] DC/Xfer Clinical Impression: Abdominal pain Qualifiers: Abdominal location: right upper quadrant Qualified Code(s): R10.11 - Right upper quadrant pain Pancreatitis Qualifiers: Chronicity: acute Pancreatitis type: unspecified pancreatitis type Acute pancreatitis complication: unspecified Qualified Code(s): K85.90 - Acute pancreatitis without necrosis or infection, unspecified Condition: Stable Record reviewed to determine appropriate education?: Yes
[2018-04-28] MEDS ORDERED: SODIUM CHLORIDE 0.9% 1,000 ML IV ONE (11:07)
[2018-04-28] MEDS ORDERED: ONDANSETRON 4 MG/2 ML VIAL IVP STA (11:07)
[2018-04-28] MEDS ORDERED: KETOROLAC 15 MG/ML VIAL IVP STA (11:07)
[2018-04-28] MEDS ORDERED: MORPHINE 10 MG/ML VIAL IVP STA ×2 (11:07→12:47)
[2018-04-28 11:27] LABS: BASOPHILS # (AUTO) 0.1 10^3/uL (0.0-0.1); BASOPHILS % (AUTO) 0.6 %; EOSINOPHILS # (AUTO) 0.1 10^3/uL (0.0-0.7); HGB - HEMOGLOBIN 16.1 g/dL (12.0-16.0); LYMPHOCYTES % (AUTO) 7.4 %; MEAN CORPUSCULAR HEMOGLOBIN 31.8 pg (27.0-31.0); MEAN CORPUSCULAR VOLUME 93.5 fL (81.0-99.0); MEAN PLATELET VOLUME 8.3 fL (7.9-10.8); MONOCYTES # (AUTO) 0.8 10^3/uL (0.0-1.0); MONOCYTES % (AUTO) 5.6 %; NEUTROPHILS # (AUTO) 11.9 10^3/uL (1.5-6.6); NEUTROPHILS % (AUTO) 85.4 %; PLT - PLATELET COUNT 234 10^3/uL (130-450); RED BLOOD COUNT 5.08 10^6/uL (4.20-5.40); RED CELL DISTRIBUTION WIDTH 13.2 % (12.0-15.0)
[2018-04-28 12:14] LABS: ALBUMIN 4.5 g/dL (3.2-5.5); ALBUMIN/GLOBULIN RATIO 1.5 (1.0-2.2); ALKALINE PHOSPHATASE 57 IU/L (42-121); ALT ALANINE AMINOTRANSFERASE 26 IU/L (10-60); AST ASPARTATE AMINOTRANSFERASE 26 IU/L (10-42); BILIRUBIN,TOTAL 0.6 mg/dL (0.2-1.0); BUN - BLOOD UREA NITROGEN 13 mg/dL (6-20); CALCIUM 8.8 mg/dL (8.5-10.3); CARBON DIOXIDE - CO2 27 mmol/L (21-32); CHLORIDE 95 mmol/L (101-111); CREATININE 0.5 mg/dL (0.4-1.0); GFR - MDRD 118 (>89); GLUCOSE 122 mg/dL (70-100); LIPASE > 4800 U/L (22-51); SODIUM 131 mmol/L (135-145); TOTAL PROTEIN 7.6 g/dL (6.7-8.2)
--- NOTE | 2018-04-28 14:04 | HISTORY & PHYSICAL EXAMINATION ---
Chief Complaint - Chief Complaint Chief Complaint: abdominal pain History of Present Illness - Admitted From Admitted From:: ED - History Obtained From Records Reviewed: yes History obtained from: chart review, patient Exam Limitations: none - History of Present Illness HPI Comment/Other: Dora Del Rio is a very pleasant 82-year-old white female with a past medical history of recurrent pancreatitis, hypertension, short term memory loss, and pulmonary hypertension. She presented to the ED today with a primary complaint of abdominal pain that began earlier today. The pain was in her upper abdomen, sharp, aching, radiated to her upper back, and was accompanied by loss of appetite, nausea, vomiting, and she recalls feeling similar the last time she had pancreatitis in the spring. Her labs show a lipase that is very elevated at 4800, an elevated WBC count at 14.0, elevated H/H at 16.1 and 47.4, a normal MCV, elevated neutorphils, a low sodium of 131, a low chloride of 95, and an elevated glucose of 122. She is noted to be mildly hypertensive with a blood pressure of 142/60. A ultrasound was obtained in the ED, that showed no gallbladder issues. The patient denies shortness of breath, jaundice, changes in bowels, diarrhea, weight loss, fatigue, recent illness, recent travel, syncope, chest pain, or insomnia. A consult to [facility], GI, Dr. Dennison was made as the patient has been seen there lately and suggests to treat symptoms and monitor. The patient will be admitted to an inpatient bed, treated with IV fluids, treat pain, and routine labs. She will be on clear liquids. General surgery may be consulted for their recommendations. History - Past Medical History Cardiovascular: reports: Hypertension, Murmur, Other (severe pulmonary HTN) Respiratory: reports: Other (right pulmonary nodules) Neuro: reports: Dementia (mild, mostly STM loss) Endocrine/Autoimmune: reports: HyPOthyroidism GI: reports: Other (recurrent pancreatitis, new fatty liver on Ultrasound) [employer]: reports: None : reports: None HEENT: reports: Chronic vision loss Psych: reports: Depression, Anxiety Musculoskeletal: reports: None Derm: reports: None MRSA Hx?: No - Past Surgical History General: reports: Appendectomy /[employer]: reports: Other HEENT: reports: Cataracts - Family & Social History Family History: Mother: (Mother of complications of old age, father of CHF but had rheumatic fever as a teenager.), Father: , Sister: , Cancer (daughter with breast cancer), Other family: Hyperlipidemia Living arrangement: At home Living Situation: With spouse/s.o. Social History Notes: The patient has been to [place] for greater than 60 years. She and her live independently and does her ADLs without difficulty. She denies substance abuse, tobacco use, or alcohol use. She wishes to be a DNR with limited interventions. - Substance History Use: Uses substance without health or social issues: NONE Abuse: Recurrent use of substance despite neg consequences: NONE Dependence: Experiences withdrawal or developed tolerances: NONE - POLST Patient has POLST: No POLST Status: DNR Meds/Allgy - Home Medications Home Medications: Ambulatory Orders Medication Instructions Recorded Confirmed Aspirin 81 mg PO DAILY 01/08/18 04/28/18 Levothyroxine [Synthroid] 50 mcg PO QDAC 01/08/18 04/28/18 amLODIPine [Norvasc] 5 mg PO DAILY #30 tablet 01/09/18 04/28/18 - Allergies Allergies/Adverse Reactions: Allergies Allergy/AdvReac Type Severity Reaction Status Date / Time No Known Drug Allergies Allergy Verified 04/28/18 10:50 Review of Systems - Constitutional Constitutional: reports: Fatigue, Chills, Weakness, Poor appetite - Eyes Eyes: reports: Vision loss, Corrective lenses - Ears, Nose & Throat Ears, Nose & Throat: reports: Hearing loss - Cardiovascular Cariovascular: reports: Edema - Gastrointestinal Gastrointestinal: reports: Abdominal pain, Nausea, Vomiting - Genitourinary Genitourinary: reports: Frequency - Musculoskeletal Musculoskeletal: reports: Limited range of motion - Integumentary Integumentary: reports: Dryness - Neurological Neurological: reports: General weakness, Memory problems, Pre-existing deficit - Psychiatric Psychiatric: reports: Depression - Hematologic/Lymphatic Hematologic/Lymphatic: reports: Anemia - All Other Systems All Other Systems: reports: Reviewed and negative Exam - Vital Signs Reviewed Vital Signs: Yes Vital Signs: Vital Signs x48h Temp Pulse Resp BP Pulse Ox 04/28/18 13:14 65 16 142/60 H 98 04/28/18 12:50 73 144/63 H 96 04/28/18 11:31 56 L 14 147/67 H 100 04/28/18 11:00 59 L 16 173/71 H 100 04/28/18 10:41 36.2 C L 88 18 173/71 H 100 - Physical Exam General Appearance: positive: Alert, Moderate distress Eyes Bilateral: positive: Normal inspection, PERRL ENT: positive: ENT inspection nml, Pharynx nml, No signs of dehydration Respiratory: positive: Chest non-tender, No respiratory distress Cardiovascular: positive: Systolic murmur Peripheral Pulses: positive: 2+ Abdomen: positive: Tenderness, Guarding Back: positive: Nml inspection Skin: positive: No rash, Warm, Dry Extremities: positive: Non-tender, Pedal edema, Joint swelling Neurologic/Psychiatric: positive: Weakness, Sensory loss, Slurred/abnml speech, Depressed mood/affect Reflexes: Bicep (R): 2+, Bicep (L): 2+ Conclusion/Plan - Problem List (1) Acute pancreatitis Conclusion/Plan: The patient had a similar episode on her last admission, that resolved with IVFs and bowel rest. The patient has since seen a GI specialist at [place], and this group was contacted in the ED for recommendations. An ultrasound was completed and showed a normal gallbladder. The patient has a elevated lipase of 4800. She has known pancreatic cysts, and one of them is near the pancreatic duct, which may be the cause of this episode. She is scheduled to follow up in [place] with a MRCP in May. I have added ursodiol PO BID as her cholesterol is elevated, and is also indicated for gallstone dissolution. I have ordered a MRCP for the AM as this is an acute event and Dr. Shoaib Culver has been consult. I have spoken over the phone, and he suggests a MRCP, which is now ordered. Plan: Daily labs, IVFs, CL diet, await MRCP and pain control. (2) Abdominal pain Conclusion/Plan: The patient states that her abdominal pain began this morning just after consuming her breakfast which is her usual type of food; oatmeal, orange juice, and a cut up apple. Plan: continue to monitor labs, treat pain, and clear liquids for now. Qualifiers: Abdominal location: generalized Qualified Code(s): R10.84 - Generalized abdominal pain (3) Hypertension Conclusion/Plan: The patient has a history of this and is prescribed Norvasc at home, which is now on hold. As per her last echo in December, this medication is the least ideal to treat her HTN since she has LV hypertrophy. A better choice is hydralazine, with spironolactone as she also has pulmonary HTN. I will order a new echo to ensure that her heart function has stayed stable. Plan: Continue IVFs to treat acute pancreatitis and start the 2 suggested meds when tolerating a diet and IVFs are complete. Qualifiers: Hypertension type: essential hypertension Qualified Code(s): I10 - Essential (primary) hypertension (4) Hypothyroidism Conclusion/Plan: The patient has a history of this and is prescribed Synthroid daily. Her last TSH in December was 2.01, and I will recheck in the AM. Plan: Continue medication and check TSH in the AM. Qualifiers: Hypothyroidism type: acquired Qualified Code(s): E03.9 - Hypothyroidism, unspecified (5) Pulmonary hypertension Conclusion/Plan: An echocardiogram from December shows elevated right heart pressures with an RVSP at rest of 68 mm Hg. (6) Nausea and vomiting Conclusion/Plan: The patient states that her nausea has been ongoing since the start of her symptoms this morning. She then vomited in the ED x2. Upon exam, she continues to have hiccups, a pre-cursor to vomiting. I have ordered Zofran both IV and SL. Plan: Continue to monitor and give antiemetics. (7) Nodule of right lung Conclusion/Plan: As per imaging, the patient was found to have a 6 x 4 mm nodule in her right lower lobe on a chest CT from her last admission. She states that she has not had any follow up imaging. She was also found to have moderate to severe pulmonary hypertension, which may be influenced by this finding. Follow up in 6 months was recommended, making that about June of 2018. Plan: Recommend follow up upon discharge. - Lab Results Lab results reviewed: Yes Fish Bones: 04/28/18 11:20 04/28/18 11:20 - Diagnostic Imaging Results Diagnostic Imaging Results: positive: Prelim report reviewed, Final report reviewed - EKG Results EKG Interpreted Independently: Yes EKG Comparison: Unchanged from prior EKG Core Measures - Anticipated LOS I expect patient to be DC'd or transferred within 96 hours.: Yes - DVT/VTE - Prophylaxis VTE/DVT Device ordered at admit?: Yes VTE/DVT Prophylaxis med ordered at admit?: Yes - Stroke - Rehab Assessment Rehab services assessment to be ordered?: No Not Ordered - Medical Reason: Contraindicated - AMI - Statin at Admit Aspirin Prescribed on Admit: No Not Ordered - Medical Reason: Contraindicated
--- NOTE | 2018-04-28 14:25 | Ultrasound Report ---
Procedure Date: 04/28/2018 Accession Number: [id number] / [id number] Procedure: US - Abdomen Limited CPT Code: FULL RESULT: EXAM: ABDOMEN ULTRASOUND LIMITED, RUQ EXAM DATE: 04/28/2018 01:20 PM. CLINICAL HISTORY: Upper abdominal pain; prior pancreatitis in December. COMPARISON: ABDOMEN LIMITED 01/08/2018 ABDOMEN/PELVIS W/O 01/07/2018. TECHNIQUE: Real-time scanning was performed with static images obtained. FINDINGS: Liver: The parenchyma is slightly echogenic diffusely. No definite focal masses are identified, but evaluation is limited secondary to the echogenicity. The right lobe of the liver measures up to 17.4 cm. Main portal vein flow: Hepatopetal. Gallbladder: Normal. No stones, wall thickening, or sonographic Montenegro's sign. Biliary System: CBD measures 5.7 mm. No right hydronephrosis. Other: None. IMPRESSION: 1. Diffuse slightly increased echogenicity of the liver, suggestive of diffuse fatty infiltration. 2. No biliary dilatation. RADIA
[2018-04-28] MEDS: SODIUM CHLORIDE 0.9% 1,000 ML IV SCH ×2 (16:53→22:27)
[2018-04-28] MEDS: SODIUM CHLORIDE FLUSH 0.9% 10 ML SYRINGE IVP SCH ×4 (16:54→23:35)
[2018-04-28] MEDS ORDERED: HYDROmorphone 1 MG/ML CARPUJECT IVP PRN (17:47)
[2018-04-28] MEDS: ACETAMINOPHEN 1,000 MG/100 ML 100 ML IV SCH ×2 (18:00→23:48)
[2018-04-28] MEDS: URSODIOL 250 MG TABLET PO SCH (18:10)
[2018-04-28] MEDS ORDERED: ONDANSETRON ODT 4 MG TABLET TL PRN (18:15)
[2018-04-28] MEDS: ONDANSETRON 4 MG/2 ML VIAL IVP PRN (18:43)
[2018-04-28] MEDS: PANTOPRAZOLE 40 MG VIAL IVP SCH (21:55)
[2018-04-29] MEDS: SODIUM CHLORIDE FLUSH 0.9% 10 ML SYRINGE IVP PRN ×2 (01:53→20:05)
[2018-04-29] MEDS: ONDANSETRON 4 MG/2 ML VIAL IVP PRN ×2 (01:54→13:09)
[2018-04-29] MEDS: SODIUM CHLORIDE 0.9% 1,000 ML IV SCH ×3 (04:49→18:47)
[2018-04-29 05:53] LABS: BASOPHILS % (AUTO) 0.3 %; EOSINOPHILS % (AUTO) 0.2 %; HGB - HEMOGLOBIN 14.5 g/dL (12.0-16.0); LYMPHOCYTES # (AUTO) 0.8 10^3/uL (1.5-3.5); LYMPHOCYTES % (AUTO) 6.2 %; MEAN CORPUSCULAR VOLUME 93.9 fL (81.0-99.0); MEAN PLATELET VOLUME 8.8 fL (7.9-10.8); MONOCYTES # (AUTO) 0.7 10^3/uL (0.0-1.0); MONOCYTES % (AUTO) 5.7 %; NEUTROPHILS # (AUTO) 11.1 10^3/uL (1.5-6.6); NEUTROPHILS % (AUTO) 87.6 %; PLT - PLATELET COUNT 204 10^3/uL (130-450); RED BLOOD COUNT 4.53 10^6/uL (4.20-5.40); RED CELL DISTRIBUTION WIDTH 13.4 % (12.0-15.0); WHITE BLOOD COUNT 12.6 x10^3/uL (4.8-10.8)
[2018-04-29] MEDS: ACETAMINOPHEN 1,000 MG/100 ML 100 ML IV SCH ×3 (06:28→17:56)
[2018-04-29] MEDS: LEVOTHYROXINE 25 MCG TABLET PO SCH (06:32)
[2018-04-29 06:45] LABS: ALBUMIN 3.3 g/dL (3.2-5.5); ALBUMIN/GLOBULIN RATIO 1.2 (1.0-2.2); BILIRUBIN,TOTAL 0.7 mg/dL (0.2-1.0); CALCIUM 6.8 mg/dL (8.5-10.3); CREATININE 0.5 mg/dL (0.4-1.0)
[2018-04-29] MEDS: POLYETHYLENE GLYCOL 3350 17 GM PACKET PO SCH (07:25)
[2018-04-29] MEDS: amLODIPine 5 MG TABLET PO SCH (08:48)
[2018-04-29] MEDS: PANTOPRAZOLE 40 MG VIAL IVP SCH ×2 (08:48→20:05)
[2018-04-29] MEDS: URSODIOL 250 MG TABLET PO SCH ×3 (08:48→16:17)
[2018-04-29] MEDS: SODIUM CHLORIDE FLUSH 0.9% 10 ML SYRINGE IVP SCH ×2 (08:48→12:54)
[2018-04-29] MEDS ORDERED: CALCIUM GLUCONATE 2,000 MG in SODIUM CHLORIDE 0.9% 100ML 100 ML IV ONE (09:15)
--- NOTE | 2018-04-29 09:51 | CONSULTATION NOTE ---
Referring Provider Name of Referring Provider:: Raegan Consult Date: 04/29/18 Chief Complaint - Chief Complaint Chief Complaint: abd pain History of Present Illness - Admitted From Admitted From:: ER - History Obtained From Records Reviewed: yes History obtained from: records, pt Exam Limitations: pt is poor historian - History of Present Illness HPI Comment/Other: 82 yo female admitted yesterday with abd pain, N/V similar to prior episode in December of this year. She was hospitalized in 12/2017 for acute pancreatitis of unclear etiology. 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 There was no evidence of cholelithiasis, triglyceride levels were nl, no hx alcohol use or trauma. She recovered with bowel rest and was seen as an outpt by GI in [place], who recommended observation and f/u imaging this fall. She follows a low fat diet but has no food intolerances. No recent wt changes, change in bowel habits, hx PUD, melena, BRBPR. FH gallbladder disease in her father; neg fh GI tumors. She reports that her abdominal pain was lower in location yesterday but now has migrated to the midepigastrium. No further N/V since admission. Pain level is down from 10 to 5 at present. Abd US yesterday again showed no evidence of biliary ductal abnormalities or cholelithiasis. History - Past Medical History Cardiovascular: reports: Hypertension, Murmur, Other (severe pulmonary HTN) Respiratory: reports: Other (right pulmonary nodules) Neuro: reports: Dementia (mild, mostly STM loss) Endocrine/Autoimmune: reports: HyPOthyroidism GI: reports: Other (recurrent pancreatitis, new fatty liver on Ultrasound) CRITICAL CARE CNS: reports: None : reports: None HEENT: reports: Chronic vision loss Psych: reports: Depression, Anxiety Musculoskeletal: reports: None Derm: reports: None MRSA Hx?: No - Past Surgical History General: reports: Appendectomy /CRITICAL CARE CNS: reports: Other HEENT: reports: Cataracts - Family & Social History Family History: Mother: (Mother of complications of old age, father of CHF but had rheumatic fever as a teenager.), Father: , Sister: , Cancer (daughter with breast cancer), Other family: Hyperlipidemia Living arrangement: At home Living Situation: With spouse/s.o. Social History Notes: The patient has been to [place] for greater than 60 years. She and her live independently and does her ADLs without difficulty. She denies substance abuse, tobacco use, or alcohol use. She wishes to be a DNR with limited interventions. Neg FH GI tumors. - Substance History Use: Uses substance without health or social issues: NONE Abuse: Recurrent use of substance despite neg consequences: NONE Dependence: Experiences withdrawal or developed tolerances: NONE - POLST Patient has POLST: No POLST Status: DNR Meds/Allgy - Home Medications Home Medications: Ambulatory Orders Medication Instructions Recorded Confirmed Aspirin 81 mg PO DAILY 01/08/18 04/28/18 Levothyroxine [Synthroid] 50 mcg PO QDAC 01/08/18 04/28/18 amLODIPine [Norvasc] 5 mg PO DAILY #30 tablet 01/09/18 04/28/18 - Allergies Allergies/Adverse Reactions: Allergies Allergy/AdvReac Type Severity Reaction Status Date / Time No Known Drug Allergies Allergy Verified 04/28/18 10:50 Review of Systems - Constitutional Constitutional: reports: Poor appetite. denies: Fever, Chills, Weight loss - Cardiovascular Cariovascular: denies: Chest pain - Respiratory Respiratory: denies: Cough, Sputum production, Wheezing - Gastrointestinal Gastrointestinal: reports: Abdominal pain, Nausea, Vomiting, Poor appetite. denies: Constipation, Diarrhea, Change in bowel habits, Rectal bleeding, Black stools, Bloody stools, Coffee grounds emesis, Reflux/heartburn - Genitourinary Genitourinary: denies: Dysuria - Hematologic/Lymphatic Hematologic/Lymphatic: denies: Blood clots, Bleeding tendencies, Recurrent infections - All Other Systems All Other Systems: reports: Reviewed and negative Exam - Vital Signs Reviewed Vital Signs: Yes Vital Signs: Vital Signs x48h Temp Pulse Resp BP Pulse Ox 04/29/18 08:10 36.4 C L 63 18 161/57 H 96 04/29/18 04:00 36.4 C L 59 L 16 138/56 H 95 - Physical Exam General Appearance: positive: Moderate distress, Anxious Eyes Bilateral: positive: Conjunctivae nml, No scleral icterus ENT: positive: Dry mucous membranes. negative: Pharyngeal erythema, Oral lesions Neck: positive: No JVD. negative: Lymphadenopathy (R), Lymphadenopathy (L) Respiratory: positive: Chest non-tender, No respiratory distress, Breath sounds nml. negative: Wheezes, Rales, Rhonchi Cardiovascular: positive: Regular rate & rhythm, No murmur, No gallop Peripheral Pulses: positive: 2+ Abdomen: positive: No organomegaly, Nml bowel sounds, Tenderness (minimal diffuse upper abdominal tenderness without peritoneal signs). negative: Guarding, Rebound, Hepatomegaly, Splenomegaly, Mass Skin: positive: Color nml, No rash, Warm, Dry Extremities: positive: Non-tender, Nml appearance, No pedal edema. negative: Calf tenderness Neurologic/Psychiatric: positive: Oriented x3 Conclusion/Plan - Diagnosis Diagnosis: Recurrent acute pancreatitis; etiology unclear; may have microlithiasis and benefit from cholecystectomy if other etiologies are excluded ; pt may have developed a pseudocyst from prior episode of pancreatitis; underlying ductal disease should be considered. - Plan Plan: Repeat MRCP today, based on findings, may benefit from ERCP and/or lap gilberto. Will follow. Thanks, - Lab Results Lab results reviewed: Yes Mehran Bones: 04/29/18 05:25 04/29/18 05:25 - Diagnostic Imaging Results Diagnostic Imaging Results: positive: Final report reviewed, Read independently Diagnostic Imaging Results Comments: See HPI.
[2018-04-29] MEDS: HYDROmorphone 0.5 MG/0.5 ML SYRINGE IVP PRN ×2 (10:17→21:20)
--- NOTE | 2018-04-29 13:59 | PROVIDER PROGRESS NOTE ---
Subjective - Prog Note Date Prog Note Date: 04/29/18 - Subjective Pt reports feeling: Improved Subjective: pt report her abdominal pain on lower quadrant is controlled but appear mild pain on her middle of upper epic gastric. pt denies nausea, vomiting, diarrhea. No chest pain, fever, chill SOB. Current Medications - Current Medications Current Medications: Active Medications Amlodipine Besylate (Norvasc) 5 mg PO DAILY [facility] Last Admin: 04/29/18 08:48 Dose: 5 mg Hydromorphone HCl (Dilaudid Inj Syringe) 0.5 mg IVP Q1HR PRN PRN Reason: PAIN Last Admin: 04/29/18 10:17 Dose: 0.5 mg Sodium Chloride (Normal Saline 0.9%) 1,000 mls @ 175 mls/hr IV .Q5H43M [facility] Last Admin: 04/29/18 13:09 Dose: 175 mls/hr Acetaminophen (Ofirmev) 100 mls @ 400 mls/hr IV Q6H [facility] Last Infusion: 04/29/18 13:25 Dose: Infused Levothyroxine Sodium (Synthroid) 50 mcg PO QDAC [facility] Last Admin: 04/29/18 06:32 Dose: 50 mcg Ondansetron HCl (Zofran Inj) 4 mg IVP Q4HR PRN PRN Reason: Nausea / Vomiting Last Admin: 04/29/18 13:09 Dose: 4 mg Ondansetron HCl (Zofran Odt) 4 mg TL Q6HR PRN PRN Reason: Nausea / Vomiting Pantoprazole Sodium (Protonix) 40 mg IVP BID [facility] Last Admin: 04/29/18 08:48 Dose: 40 mg Polyethylene Glycol (Miralax) 17 gm PO DAILY [facility] Last Admin: 04/29/18 07:25 Dose: Not Given Sodium Chloride (Normal Saline Flush 0.9%) 10 ml IVP PRN PRN PRN Reason: NEEDED PER PROVIDER ORDERS Last Admin: 04/29/18 01:53 Dose: 10 ml Sodium Chloride (Normal Saline Flush 0.9%) 10 ml IVP 0100,0900,1700 [facility] Last Admin: 04/29/18 12:54 Dose: Not Given Ursodiol (Yas 250) 500 mg PO BIDWM [facility] Last Admin: 04/29/18 09:00 Dose: Not Given Aspirin 81 mg PO DAILY 01/08/18 Levothyroxine [Synthroid] 50 mcg PO QDAC 01/08/18 Objective - Vital Signs/Intake & Output Reviewed Vital Signs: Yes Vital Signs: Vital Signs x48h Temp Pulse Resp BP Pulse Ox 04/29/18 11:53 36.5 C 58 L 18 165/61 H 95 04/29/18 08:10 36.4 C L 63 18 161/57 H 96 Intake & Output: Intake & Output 04/26/18 04/27/18 04/28/18 04/29/18 23:59 23:59 23:59 23:59 Intake Total 9805.104 5373.333 Output Total 700 250 Balance 8349.485 8005.333 - Objective General Appearance: positive: No acute distress, Alert. negative: Lethargic Eyes Bilateral: positive: Normal inspection, PERRL, No lid inflammation, Conjunctivae nml ENT: positive: ENT inspection nml, Pharynx nml, No signs of dehydration. negative: Purulent nasal drainage, Pharyngeal erythema, Oral lesions Neck: positive: Nml inspection, Thyroid nml, No JVD, Trachea midline. negative : Thyromegaly, Lymphadenopathy (R), Lymphadenopathy (L), Stiff neck, Swelling/ bruising, Tracheal deviation Respiratory: positive: Chest non-tender, No respiratory distress, Breath sounds nml. negative: Wheezes, Rales, Rhonchi Cardiovascular: positive: Regular rate & rhythm, No murmur, No gallop. negative : Irregularly irregular, Extrasystoles, Tachycardia, Bradycardia, JVD present, Systolic murmur, Diastolic murmur Peripheral Pulses: 2+ Radial (R), 2+ Radial (L), 2+ Dorsalis pedis (R), 2+ Dorsalis pedis (L) Abdomen: positive: Non-tender, No organomegaly, Nml bowel sounds, No distention. negative: Tenderness, Guarding, Rebound Back: positive: Nml inspection. negative: CVA tenderness (R), CVA tenderness (L ) Skin: positive: Color nml, No rash, Warm, Dry. negative: Cyanosis, Diaphoresis , Pallor Extremities: positive: Non-tender, Full ROM, Nml appearance. negative: Calf tenderness, Joint swelling, Vick's sign/cords Neurologic/Psychiatric: positive: Oriented x3, Motor nml, Sensation nml, Mood/ affect nml. negative: Weakness, Sensory loss, Facial droop, Slurred/abnml speech, Depressed mood/affect - Lab Results Fish Bones: 04/29/18 05:25 04/29/18 05:25 Other Labs: Lab Results x24hrs 04/29/18 04/29/18 04/29/18 Range/Units 05:25 05:25 05:25 WBC 12.6 H (4.8-10.8) x10^3/uL RBC 4.53 (4.20-5.40) 10^6/uL Hgb 14.5 (12.0-16.0) g/dL Hct 42.6 (37.0-47.0) % MCV 93.9 (81.0-99.0) fL MCH 32.0 H (27.0-31.0) pg MCHC 34.0 (32.0-36.0) g/dL RDW 13.4 (12.0-15.0) % Plt Count 204 (130-450) 10^3/uL MPV 8.8 (7.9-10.8) fL Neut # (Auto) 11.1 H (1.5-6.6) 10^3/uL Lymph # (Auto) 0.8 L (1.5-3.5) 10^3/uL [place] # (Auto) 0.7 (0.0-1.0) 10^3/uL Eos # (Auto) 0.0 (0.0-0.7) 10^3/uL Baso # (Auto) 0.0 (0.0-0.1) 10^3/uL Absolute Nucleated RBC 0.00 x10^3/uL Nucleated RBC % 0.0 /100WBC Sodium 129 L (135-145) mmol/L Potassium 3.7 (3.5-5.0) mmol/L Chloride 96 L (101-111) mmol/L Carbon Dioxide 23 (21-32) mmol/L Anion Gap 10.0 (6-13) BUN 9 (6-20) mg/dL Creatinine 0.5 (0.4-1.0) mg/dL Estimated GFR (MDRD) 118 (>89) Glucose 133 H (70-100) mg/dL Calcium 6.8 L (8.5-10.3) mg/dL Total Bilirubin 0.7 (0.2-1.0) mg/dL AST 26 (10-42) IU/L ALT 20 (10-60) IU/L Alkaline Phosphatase 47 (42-121) IU/L B-Natriuretic Peptide 151 H (5-100) pg/mL Total Protein 6.0 L (6.7-8.2) g/dL Albumin 3.3 (3.2-5.5) g/dL Globulin 2.7 (2.1-4.2) g/dL Albumin/Globulin Ratio 1.2 (1.0-2.2) Amylase 1596 H* (28-100) U/L Lipase 1342 H (22-51) U/L ABX Reporting Has patient been on IV antibiotics over the past 48 hours?: No Assessment/Plan - Problem List (1) Acute pancreatitis Impression: Conclusion/Plan: 04/29 pt's abdominal is better and controlled. Lipase is down to 1400 from 4800 continue IVF of NS, and clear liquid diet continue pain control continue lab monitor order MRCP per surgeon's recommendation, will follow up surgeon The patient had a similar episode on her last admission, that resolved with IVFs and bowel rest. The patient has since seen a GI specialist at [place], and this group was contacted in the ED for recommendations. An ultrasound was completed and showed a normal gallbladder. The patient has a elevated lipase of 4800. She has known pancreatic cysts, and one of them is near the pancreatic duct, which may be the cause of this episode. She is scheduled to follow up in [place] with a MRCP in May. I have added ursodiol PO BID as her cholesterol is elevated, and is also indicated for gallstone dissolution. I have ordered a MRCP for the AM as this is an acute event and Dr. Shoaib Culver has been consult. I have spoken over the phone, and he suggests a MRCP, which is now ordered. Plan: Daily labs, IVFs, CL diet, await MRCP and pain control. (2) Abdominal pain Conclusion/Plan: 04/29, better control, continue pain control, continue IVF of NS, clear diet The patient states that her abdominal pain began this morning just after consuming her breakfast which is her usual type of food; oatmeal, orange juice, and a cut up apple. Plan: continue to monitor labs, treat pain, and clear liquids for now. (3) Hypertension Conclusion/Plan: The patient has a history of this and is prescribed Norvasc at home, which is now on hold. As per her last echo in December, this medication is the least ideal to treat her HTN since she has LV hypertrophy. A better choice is hydralazine, with spironolactone as she also has pulmonary HTN. I will order a new echo to ensure that her heart function has stayed stable. Plan: Continue IVFs to treat acute pancreatitis and start the 2 suggested meds when tolerating a diet and IVFs are complete. (4) Hypothyroidism Conclusion/Plan: will check TSH, follow up The patient has a history of this and is prescribed Synthroid daily. Her last TSH in December was 2.01, and I will recheck in the AM. Plan: Continue medication and check TSH in the AM. (5) Nausea and vomiting Conclusion/Plan: resolved The patient states that her nausea has been ongoing since the start of her symptoms this morning. She then vomited in the ED x2. Upon exam, she continues to have hiccups, a pre-cursor to vomiting. I have ordered Zofran both IV and SL. Plan: Continue to monitor and give antiemetics. (6) hyponatremia chronic condition, today Na is 129 continue IVF of NS, daily check (7)hypocalcemia today pt's calcium is 6.8. Hypocalcemia is common at acute pancreatitis but associated with poor outcome order MRCP, follow up replacement of Ca daily check
--- NOTE | 2018-04-29 14:36 | MRI Report ---
Procedure Date: 04/29/2018 Accession Number: [id number] / [id number] Procedure: MRI - MRCP W/O CPT Code: FULL RESULT: EXAM: MR ABDOMEN WITHOUT CONTRAST (MR CHOLANGIOPANCREATOGRAPHY) EXAM DATE: 04/29/2018 01:05 PM. CLINICAL HISTORY: Abdominal pain, pancreatitis, history of IPMN, pseudo. COMPARISON: MRCP W/O 01/08/2018 10:53 AM. TECHNIQUE: Multiplanar breath-hold T1 and T2 sequences obtained through the abdomen on an MR scanner. Dedicated 2D and 3D MRCP sequences obtained through the biliary and pancreatic ducts. No intravenous contrast given. FINDINGS: Liver: The liver has normal size, morphology and signal. No evidence of mass. The intrahepatic bile ducts appear normal. CBD: The extrahepatic ducts appear normal. The CBD is 6 mm in diameter. Gallbladder: The gallbladder is partially distended and appears normal with no wall thickening or stone. Pancreas: The multilobulated cystic pancreatic tail lesion apparently in communication with the pancreatic duct by sidebranch is again seen and difficult to measure, approximately 4.5 x 2.8 x 2.1 (CC, T, AP). A number of tiny cysts measuring less than 5 mm in the pancreatic head region likely represent small sidebranch IPMN. The pancreatic duct measures 2 mm in diameter and appears normal in the head and body with no stone or stricture. Spleen: The spleen appears normal. Kidneys and Adrenals: The kidneys appear normal with no mass or hydronephrosis. There are no cysts in the kidneys. The adrenals appear normal. Bowel: The small bowel and colon appear normal with no inflammation or obstruction. Retroperitoneum and Peritoneum: Marked retroperitoneal edema in a peripancreatic distribution in keeping with pancreatitis. Interval development of suprahepatic collection, likely related to pancreatitis. IMPRESSION: Multiloculated 4.5 cm cystic lesion at the junction of the pancreatic body and tail. Overall appearance favors sidebranch IPMN. Serous cystic adenoma as well as pancreatic pseudocyst are not excluded. Recommend short interval surveillance with a combination of EUS and MRCP. Sequelae of pancreatitis including loculated perihepatic ascites and retroperitoneal edema. RADIA
[2018-04-29] MEDS ORDERED: cloNIDine 0.1 MG TABLET PO PRN (15:05)
[2018-04-29 17:40] LABS: BILIRUBIN,URINE NEGATIVE (NEGATIVE); GLUCOSE, URINE (UA) NEGATIVE (NEGATIVE); KETONES,URINE (UA) NEGATIVE (NEGATIVE); LEUKOCYTE ESTERASE, URINE NEGATIVE (NEGATIVE); NITRITE,URINE NEGATIVE (NEGATIVE); OCCULT BLOOD,URINE NEGATIVE (NEGATIVE); PH,URINE 6.5 PH (5.0-7.5); PROTEIN,URINE NEGATIVE (NEGATIVE); UROBILINOGEN,URINE 0.2 (NORMAL) E.U./dL (NORMAL)
[2018-04-29 17:47] LABS: CLARITY,URINE CLEAR (CLEAR)
[2018-04-29 18:08] LABS: BACTERIA,URINE None Seen /HPF (None Seen); RBC,URINE None Seen /HPF (0-5); SQUAMOUS EPITHELIAL CELL,UR FEW Squamous (<= Few)
[2018-04-30] MEDS: SODIUM CHLORIDE 0.9% 1,000 ML IV SCH (00:31)
[2018-04-30] MEDS: ACETAMINOPHEN 1,000 MG/100 ML 100 ML IV SCH ×4 (00:35→17:19)
[2018-04-30] MEDS: SODIUM CHLORIDE FLUSH 0.9% 10 ML SYRINGE IVP SCH ×3 (00:38→17:18)
[2018-04-30] MEDS: METOPROLOL TARTRATE 50 MG TABLET PO SCH ×3 (03:31→20:10)
[2018-04-30 05:51] LABS: BASOPHILS % (AUTO) 0.1 %; EOSINOPHILS % (AUTO) 0.1 %; HGB - HEMOGLOBIN 14.5 g/dL (12.0-16.0); LYMPHOCYTES # (AUTO) 0.5 10^3/uL (1.5-3.5); LYMPHOCYTES % (AUTO) 2.7 %; MEAN CORPUSCULAR HGB CONC 34.1 g/dL (32.0-36.0); MEAN CORPUSCULAR VOLUME 94.1 fL (81.0-99.0); MEAN PLATELET VOLUME 8.9 fL (7.9-10.8); MONOCYTES # (AUTO) 1.2 10^3/uL (0.0-1.0); MONOCYTES % (AUTO) 6.6 %; NEUTROPHILS # (AUTO) 16.1 10^3/uL (1.5-6.6); NEUTROPHILS % (AUTO) 90.5 %; PLT - PLATELET COUNT 218 10^3/uL (130-450); RED BLOOD COUNT 4.53 10^6/uL (4.20-5.40); RED CELL DISTRIBUTION WIDTH 13.3 % (12.0-15.0); WHITE BLOOD COUNT 17.7 x10^3/uL (4.8-10.8)
[2018-04-30 06:06] LABS: CHOL/HDL RATIO 3.8 (<4.4); CHOLESTEROL 173 mg/dL; HDL CHOLESTEROL 46 mg/dL; LDL CHOLESTEROL,CALCULATED 113 mg/dL; LDL/HDL RATIO 2.5 (<4.4); VLDL CHOLESTEROL 14 mg/dL
[2018-04-30 06:19] LABS: ALBUMIN 2.7 g/dL (3.2-5.5); BILIRUBIN,TOTAL 0.9 mg/dL (0.2-1.0); CALCIUM 6.5 mg/dL (8.5-10.3); CREATININE 0.4 mg/dL (0.4-1.0); TOTAL PROTEIN 5.5 g/dL (6.7-8.2)
[2018-04-30] MEDS: LEVOTHYROXINE 25 MCG TABLET PO SCH (06:45)
[2018-04-30] MEDS ORDERED: POTASSIUM CHLORIDE 20 MEQ TABLET PO SCH (07:33)
[2018-04-30] MEDS ORDERED: CALCIUM GLUCONATE 2,000 MG in SODIUM CHLORIDE 0.9% 100ML 100 ML IV SCH (08:00)
--- NOTE | 2018-04-30 09:51 | PROVIDER PROGRESS NOTE ---
Assessment/Plan - Problem List (1) Acute pancreatitis Qualifiers: Pancreatitis type: unspecified pancreatitis type Acute pancreatitis complication: no infection or necrosis Qualified Code(s): K85.90 - Acute pancreatitis without necrosis or infection, unspecified Assessment/Plan: Clinically improving with resolving abd pain, N/V, and decreasing lipase/ amylase values; Rec: slowly resume low fat diet as tolerated. (2) Pancreatic cyst Assessment/Plan: Enlarging compared to December 2017; ddx includes cystadenoma (IPMN), pseudocyst, benign congenital cyst, doubt carcinoma. Rec: outpt f/u with ERCP, biopsy/or drainage of lesion as appropriate. - Current Meds Current Meds: Current Medications Generic Name Dose Route Start Last Admin Trade Name Freq PRN Reason Stop Dose Admin Amlodipine Besylate 5 mg 04/29/18 09:00 04/29/18 08:48 Norvasc PO 5 mg DAILY MAYO Administration Hydromorphone HCl 0.5 mg 04/29/18 06:52 04/29/18 21:20 Dilaudid Inj Syringe IVP 0.5 mg Q1HR PRN Administration PAIN Sodium Chloride 1,000 mls @ 175 mls/hr 04/28/18 16:00 04/30/18 08:23 Normal Saline 0.9% IV 150 mls/hr .Q5H43M MAYO Infusion Acetaminophen 100 mls @ 400 mls/hr 04/28/18 18:00 04/30/18 08:16 Ofirmev IV Infused Q6H [facility] Infusion Levothyroxine Sodium 50 mcg 04/29/18 07:00 04/30/18 06:45 Synthroid PO 50 mcg QDAC MAYO Administration Metoprolol Tartrate 50 mg 04/30/18 04:00 04/30/18 03:31 Lopressor PO 50 mg BID MAYO Administration Ondansetron HCl 4 mg 04/28/18 18:15 04/29/18 13:09 Zofran Inj IVP 4 mg Q4HR PRN Administration Nausea / Vomiting Pantoprazole Sodium 40 mg 04/28/18 21:00 04/29/18 20:05 Protonix IVP 40 mg BID MAYO Administration Polyethylene Glycol 17 gm 04/29/18 09:00 04/29/18 07:25 Miralax PO Not Given DAILY MAYO Sodium Chloride 10 ml 04/28/18 14:02 04/29/18 20:05 Normal Saline Flush 0.9% IVP 10 ml PRN PRN Administration NEEDED PER PROVIDER ORDERS Sodium Chloride 10 ml 04/28/18 17:00 04/30/18 00:38 Normal Saline Flush 0.9% IVP Not Given 0100,0900,1700 MAYO Ursodiol 500 mg 04/28/18 18:00 04/29/18 16:17 Yas 250 PO 500 mg BIDWM MAYO Administration - Lab Result Lab results reviewed: Yes Fish Bone Diagrams: 04/30/18 05:05 04/30/18 05:05 - Diagnostic Imaging Results Diagnostic Imaging Results: Final report reviewed, Read independently Diagnostic Imaging Results Comments: MRCP: multiple tiny cyst in head of pancreas; 4+cm lobulated cystic lesion in pancreatic tail; nl pancreatic duct; nl bile ducts; no gallstones; fluid and edema surrounding pancreas c/w edematous pancreatitis. - Additional Planning Condition/Complexity: Improved Consult/Specialty: Gastroenterology Plan Discussed with:: Patient, Spouse Time Spent: 15-30 minutes Subjective - Subjective Patient Reports: Feeling Better, Resting Comfortably, No Complaints (abd pain, N /V have resolved; nl bm this am) Objective Vital Signs: Vital Signs - 24 hr 04/29/18 04/29/18 04/29/18 11:53 15:41 19:59 Temperature 36.5 C 36.4 C L 37.0 C Heart Rate [ 58 L 64 68 Brachial] Respiratory 18 18 18 Rate Blood Pressure Blood Pressure 165/61 H 165/58 H 161/60 H [Right Brachial artery] O2 Saturation 95 96 97 04/29/18 04/30/18 04/30/18 23:49 02:20 02:34 Temperature 37.2 C Heart Rate [ 70 126 H 131 H Brachial] Respiratory 16 18 16 Rate Blood Pressure Blood Pressure 142/52 H 137/56 H 143/85 H [Right Brachial artery] O2 Saturation 93 94 04/30/18 04/30/18 04/30/18 02:54 03:30 03:31 Temperature Heart Rate [ 101 H 100 Brachial] Respiratory Rate Blood Pressure 132/69 H Blood Pressure 150/64 H 132/69 H [Right Brachial artery] O2 Saturation 04/30/18 04/30/18 04/30/18 03:35 03:40 03:45 Temperature Heart Rate [ 129 H 92 117 H Brachial] Respiratory Rate Blood Pressure Blood Pressure 138/92 H 129/67 129/62 [Right Brachial artery] O2 Saturation 04/30/18 04/30/18 04/30/18 04:14 04:21 04:36 Temperature 36.9 C Heart Rate [ 100 99 89 Brachial] Respiratory 18 Rate Blood Pressure Blood Pressure 115/60 124/54 L 133/80 H [Right Brachial artery] O2 Saturation 94 04/30/18 04/30/18 04:50 08:03 Temperature 35.7 C L Heart Rate [ 96 77 Brachial] Respiratory 16 Rate Blood Pressure Blood Pressure 127/65 103/49 L [Right Brachial artery] O2 Saturation 93 Oxygen O2 Source Room air I&O (Last 24 Hrs): Intake and Output Totals x24h 04/28/18 04/29/18 04/30/18 23:59 23:59 23:59 Intake Total 7396.575 2153.166 2211.667 Output Total 700 2550 Balance 1016.667 049.467 5383.667 General: Alert, Oriented x3, Cooperative, No acute distress HEENT: Mucous membr. moist/pink Neck: Supple Neuro: Alert Abdomen: Normal bowel sounds, Soft, No tenderness, No hepatospenomegaly, No masses - Results Results: Laboratory Results WBC 17.7 x10^3/uL (4.8-10.8) H 04/30/18 05:05 RBC 4.53 10^6/uL (4.20-5.40) 04/30/18 05:05 Hgb 14.5 g/dL (12.0-16.0) 04/30/18 05:05 Hct 42.6 % (37.0-47.0) 04/30/18 05:05 MCV 94.1 fL (81.0-99.0) 04/30/18 05:05 MCH 32.0 pg (27.0-31.0) H 04/30/18 05:05 MCHC 34.1 g/dL (32.0-36.0) 04/30/18 05:05 RDW 13.3 % (12.0-15.0) 04/30/18 05:05 Plt Count 218 10^3/uL (130-450) 04/30/18 05:05 MPV 8.9 fL (7.9-10.8) 04/30/18 05:05 Neut # (Auto) 16.1 10^3/uL (1.5-6.6) H 04/30/18 05:05 Lymph # (Auto) 0.5 10^3/uL (1.5-3.5) L 04/30/18 05:05 [place] # (Auto) 1.2 10^3/uL (0.0-1.0) H 04/30/18 05:05 Eos # (Auto) 0.0 10^3/uL (0.0-0.7) 04/30/18 05:05 Baso # (Auto) 0.0 10^3/uL (0.0-0.1) 04/30/18 05:05 Absolute Nucleated RBC 0.00 x10^3/uL 04/30/18 05:05 Nucleated RBC % 0.0 /100WBC 04/30/18 05:05 Sodium 134 mmol/L (135-145) L 04/30/18 05:05 Potassium 3.1 mmol/L (3.5-5.0) L 04/30/18 05:05 Chloride 107 mmol/L (101-111) 04/30/18 05:05 Carbon Dioxide 21 mmol/L (21-32) 04/30/18 05:05 Anion Gap 6.0 (6-13) 04/30/18 05:05 BUN 7 mg/dL (6-20) 04/30/18 05:05 Creatinine 0.4 mg/dL (0.4-1.0) 04/30/18 05:05 Estimated GFR (MDRD) 153 (>89) 04/30/18 05:05 Glucose 142 mg/dL (70-100) H 04/30/18 05:05 Calcium 6.5 mg/dL (8.5-10.3) L* 04/30/18 05:05 Total Bilirubin 0.9 mg/dL (0.2-1.0) 04/30/18 05:05 AST 22 IU/L (10-42) 04/30/18 05:05 ALT 14 IU/L (10-60) 04/30/18 05:05 Alkaline Phosphatase 48 IU/L (42-121) 04/30/18 05:05 B-Natriuretic Peptide 181 pg/mL (5-100) H 04/30/18 05:05 Total Protein 5.5 g/dL (6.7-8.2) L 04/30/18 05:05 Albumin 2.7 g/dL (3.2-5.5) L 04/30/18 05:05 Globulin 2.8 g/dL (2.1-4.2) 04/30/18 05:05 Albumin/Globulin Ratio 1.0 (1.0-2.2) 04/30/18 05:05 Triglycerides 68 mg/dL (-149) 04/30/18 05:05 Cholesterol 173 mg/dL (-199) 04/30/18 05:05 LDL Cholesterol, Calc 113 mg/dL (-129) 04/30/18 05:05 VLDL Cholesterol 14 mg/dL 04/30/18 05:05 HDL Cholesterol 46 mg/dL (60-) L 04/30/18 05:05 LDL/HDL Ratio 2.5 (<4.4) 04/30/18 05:05 Cholesterol/HDL Ratio 3.8 (<4.4) 04/30/18 05:05 Amylase 602 U/L (28-100) H* 04/30/18 05:05 Lipase 299 U/L (22-51) H 04/30/18 05:05 TSH 2.67 uIU/mL (0.34-5.60) 04/30/18 05:05 Urine Color YELLOW 04/29/18 17:30 Urine Clarity CLEAR (CLEAR) 04/29/18 17:30 Urine pH 6.5 PH (5.0-7.5) 04/29/18 17:30 Ur Specific Mobile 1.010 (1.002-1.030) 04/29/18 17:30 Urine Protein NEGATIVE mg/dL (NEGATIVE) 04/29/18 17:30 Urine Glucose (UA) NEGATIVE mg/dL (NEGATIVE) 04/29/18 17:30 Urine Ketones NEGATIVE mg/dL (NEGATIVE) 04/29/18 17:30 Urine Occult Blood NEGATIVE (NEGATIVE) 04/29/18 17:30 Urine Nitrite NEGATIVE (NEGATIVE) 04/29/18 17:30 Urine Bilirubin NEGATIVE (NEGATIVE) 04/29/18 17:30 Urine Urobilinogen 0.2 (NORMAL) E.U./dL (NORMAL) 04/29/18 17:30 Ur Leukocyte Esterase NEGATIVE (NEGATIVE) 04/29/18 17:30 Urine RBC None Seen /HPF (0-5) 04/29/18 17:30 Urine WBC 0-3 /HPF (0-5) 04/29/18 17:30 Ur Squamous Epith Cells FEW Squamous (<= Few) 04/29/18 17:30 Urine Bacteria None Seen /HPF (None Seen) 04/29/18 17:30 Urine Culture Comments NOT INDICATED 04/29/18 17:30 ABX Reporting Has patient been on IV antibiotics over the past 48 hours?: No
[2018-04-30] MEDS: POLYETHYLENE GLYCOL 3350 17 GM PACKET PO SCH (10:34)
[2018-04-30] MEDS: URSODIOL 250 MG TABLET PO SCH ×2 (10:35→17:18)
[2018-04-30] MEDS: PANTOPRAZOLE 40 MG VIAL IVP SCH ×2 (10:36→20:11)
[2018-04-30] MEDS: SODIUM CHLORIDE FLUSH 0.9% 10 ML SYRINGE IVP PRN ×2 (10:37→20:11)
[2018-04-30] MEDS: amLODIPine 5 MG TABLET PO SCH (10:38)
--- NOTE | 2018-04-30 11:15 | PROVIDER PROGRESS NOTE ---
Subjective - Prog Note Date Prog Note Date: 04/30/18 - Subjective Pt reports feeling: Improved Subjective: pt report no abdominal pain, no N/V, and pt request advance diet. Pt denies chest pain, palpitation, SOB. I called group GI provider at [place]. GI provider state pt call the office and will see pt on next week. Current Medications - Current Medications Current Medications: Active Medications Amlodipine Besylate (Norvasc) 5 mg PO DAILY [facility] Last Admin: 04/30/18 10:38 Dose: 5 mg Clonidine HCl (Catapres) 0.1 mg PO BID PRN PRN Reason: Hypertensive Emergency Hydromorphone HCl (Dilaudid Inj Syringe) 0.5 mg IVP Q1HR PRN PRN Reason: PAIN Last Admin: 04/29/18 21:20 Dose: 0.5 mg Acetaminophen (Ofirmev) 100 mls @ 400 mls/hr IV Q6H [facility] Last Infusion: 04/30/18 08:16 Dose: Infused Levothyroxine Sodium (Synthroid) 50 mcg PO QDAC [facility] Last Admin: 04/30/18 06:45 Dose: 50 mcg Metoprolol Tartrate (Lopressor) 50 mg PO BID [facility] Last Admin: 04/30/18 10:36 Dose: 50 mg Ondansetron HCl (Zofran Inj) 4 mg IVP Q4HR PRN PRN Reason: Nausea / Vomiting Last Admin: 04/29/18 13:09 Dose: 4 mg Ondansetron HCl (Zofran Odt) 4 mg TL Q6HR PRN PRN Reason: Nausea / Vomiting Pantoprazole Sodium (Protonix) 40 mg IVP BID [facility] Last Admin: 04/30/18 10:36 Dose: 40 mg Polyethylene Glycol (Miralax) 17 gm PO DAILY [facility] Last Admin: 04/30/18 10:34 Dose: 17 gm Sodium Chloride (Normal Saline Flush 0.9%) 10 ml IVP PRN PRN PRN Reason: NEEDED PER PROVIDER ORDERS Last Admin: 04/30/18 10:37 Dose: 10 ml Sodium Chloride (Normal Saline Flush 0.9%) 10 ml IVP 0100,0900,1700 [facility] Last Admin: 04/30/18 10:37 Dose: 10 ml Ursodiol (Yas 250) 500 mg PO BIDWM [facility] Last Admin: 04/30/18 10:35 Dose: 500 mg Aspirin 81 mg PO DAILY 01/08/18 Levothyroxine [Synthroid] 50 mcg PO QDAC 01/08/18 Objective - Vital Signs/Intake & Output Vital Signs: Vital Signs x48h Temp Pulse Resp BP BP Pulse Ox 04/30/18 10:49 72 16 129/69 04/30/18 10:36 108/56 L 04/30/18 08:03 35.7 C L 77 16 103/49 L 93 04/30/18 04:50 96 127/65 04/30/18 04:36 89 133/80 H 04/30/18 04:21 99 124/54 L 04/30/18 04:14 36.9 C 100 18 115/60 94 04/30/18 03:45 117 H 129/62 04/30/18 03:40 92 129/67 04/30/18 03:35 129 H 138/92 H 04/30/18 03:31 132/69 H 04/30/18 03:30 100 132/69 H Intake & Output: Intake & Output 04/27/18 04/28/18 04/29/18 04/30/18 23:59 23:59 23:59 23:59 Intake Total 3512.994 4533.166 2211.667 Output Total 700 2550 Balance 1016.667 943.100 0131.667 - Objective General Appearance: positive: No acute distress, Alert. negative: Lethargic Eyes Bilateral: positive: Normal inspection, PERRL, No lid inflammation ENT: positive: ENT inspection nml, Pharynx nml, No signs of dehydration. negative: Purulent nasal drainage, Pharyngeal erythema, Oral lesions Neck: positive: Nml inspection, Thyroid nml, No JVD, Trachea midline. negative : Thyromegaly, Lymphadenopathy (R), Lymphadenopathy (L), Stiff neck, Swelling/ bruising, Tracheal deviation Respiratory: positive: Chest non-tender, No respiratory distress, Breath sounds nml. negative: Wheezes, Rales, Rhonchi Cardiovascular: positive: Regular rate & rhythm, No murmur, No gallop. negative : Irregularly irregular, Extrasystoles, Tachycardia, Bradycardia, JVD present, Systolic murmur, Diastolic murmur Peripheral Pulses: 2+ Radial (R), 2+ Radial (L), 2+ Dorsalis pedis (R), 2+ Dorsalis pedis (L) Abdomen: positive: Non-tender, No organomegaly, Nml bowel sounds, No distention. negative: Tenderness, Guarding, Rebound Back: positive: Nml inspection. negative: CVA tenderness (R), CVA tenderness (L ) Skin: positive: Color nml, No rash, Warm, Dry. negative: Cyanosis, Diaphoresis , Pallor Extremities: positive: Non-tender, Full ROM, Nml appearance. negative: Calf tenderness, Joint swelling, Vick's sign/cords Neurologic/Psychiatric: positive: Oriented x3, Sensation nml, Mood/affect nml. negative: Weakness, Sensory loss, Facial droop, Slurred/abnml speech, Depressed mood/affect - Lab Results Fish Bones: 04/30/18 05:05 04/30/18 05:05 Other Labs: Lab Results x24hrs 04/30/18 04/30/18 04/30/18 Range/Units 10:12 05:05 05:05 WBC (4.8-10.8) x10^3/uL RBC (4.20-5.40) 10^6/uL Hgb (12.0-16.0) g/dL Hct (37.0-47.0) % MCV (81.0-99.0) fL MCH (27.0-31.0) pg MCHC (32.0-36.0) g/dL RDW (12.0-15.0) % Plt Count (130-450) 10^3/uL MPV (7.9-10.8) fL Neut # (Auto) (1.5-6.6) 10^3/uL Lymph # (Auto) (1.5-3.5) 10^3/uL Schley # (Auto) (0.0-1.0) 10^3/uL Eos # (Auto) (0.0-0.7) 10^3/uL Baso # (Auto) (0.0-0.1) 10^3/uL Absolute Nucleated RBC x10^3/uL Nucleated RBC % /100WBC Sodium (135-145) mmol/L Potassium (3.5-5.0) mmol/L Chloride (101-111) mmol/L Carbon Dioxide (21-32) mmol/L Anion Gap (6-13) BUN (6-20) mg/dL Creatinine (0.4-1.0) mg/dL Estimated GFR (MDRD) (>89) Glucose (70-100) mg/dL Calcium (8.5-10.3) mg/dL Total Bilirubin (0.2-1.0) mg/dL AST (10-42) IU/L ALT (10-60) IU/L Alkaline Phosphatase (42-121) IU/L Troponin I 0.16 (<0.49) ng/mL B-Natriuretic Peptide (5-100) pg/mL Total Protein (6.7-8.2) g/dL Albumin (3.2-5.5) g/dL Globulin (2.1-4.2) g/dL Albumin/Globulin Ratio (1.0-2.2) Triglycerides 68 ( - 149) mg/dL Cholesterol 173 ( - 199) mg/dL LDL Cholesterol, Calc 113 ( - 129) mg/dL VLDL Cholesterol 14 mg/dL HDL Cholesterol 46 L (60 - ) mg/dL LDL/HDL Ratio 2.5 (<4.4) Cholesterol/HDL Ratio 3.8 (<4.4) Amylase (28-100) U/L Lipase (22-51) U/L TSH 2.67 (0.34-5.60) uIU/mL Urine Color Urine Clarity (CLEAR) Urine pH (5.0-7.5) PH Ur Specific [place] (1.002-1.030) Urine Protein (NEGATIVE) mg/dL Urine Glucose (UA) (NEGATIVE) mg/dL Urine Ketones (NEGATIVE) mg/dL Urine Occult Blood (NEGATIVE) Urine Nitrite (NEGATIVE) Urine Bilirubin (NEGATIVE) Urine Urobilinogen (NORMAL) E.U./dL Ur Leukocyte Esterase (NEGATIVE) Urine RBC (0-5) /HPF Urine WBC (0-5) /HPF Ur Squamous Epith Cells (<= Few) Urine Bacteria (None Seen) /HPF Urine Culture Comments 04/30/18 04/30/18 04/30/18 Range/Units 05:05 05:05 05:05 WBC 17.7 H (4.8-10.8) x10^3/uL RBC 4.53 (4.20-5.40) 10^6/uL Hgb 14.5 (12.0-16.0) g/dL Hct 42.6 (37.0-47.0) % MCV 94.1 (81.0-99.0) fL MCH 32.0 H (27.0-31.0) pg MCHC 34.1 (32.0-36.0) g/dL RDW 13.3 (12.0-15.0) % Plt Count 218 (130-450) 10^3/uL MPV 8.9 (7.9-10.8) fL Neut # (Auto) 16.1 H (1.5-6.6) 10^3/uL Lymph # (Auto) 0.5 L (1.5-3.5) 10^3/uL Schley # (Auto) 1.2 H (0.0-1.0) 10^3/uL Eos # (Auto) 0.0 (0.0-0.7) 10^3/uL Baso # (Auto) 0.0 (0.0-0.1) 10^3/uL Absolute Nucleated RBC 0.00 x10^3/uL Nucleated RBC % 0.0 /100WBC Sodium 134 L (135-145) mmol/L Potassium 3.1 L (3.5-5.0) mmol/L Chloride 107 (101-111) mmol/L Carbon Dioxide 21 (21-32) mmol/L Anion Gap 6.0 (6-13) BUN 7 (6-20) mg/dL Creatinine 0.4 (0.4-1.0) mg/dL Estimated GFR (MDRD) 153 (>89) Glucose 142 H (70-100) mg/dL Calcium 6.5 L* (8.5-10.3) mg/dL Total Bilirubin 0.9 (0.2-1.0) mg/dL AST 22 (10-42) IU/L ALT 14 (10-60) IU/L Alkaline Phosphatase 48 (42-121) IU/L Troponin I (<0.49) ng/mL B-Natriuretic Peptide 181 H (5-100) pg/mL Total Protein 5.5 L (6.7-8.2) g/dL Albumin 2.7 L (3.2-5.5) g/dL Globulin 2.8 (2.1-4.2) g/dL Albumin/Globulin Ratio 1.0 (1.0-2.2) Triglycerides ( - 149) mg/dL Cholesterol ( - 199) mg/dL LDL Cholesterol, Calc ( - 129) mg/dL VLDL Cholesterol mg/dL HDL Cholesterol (60 - ) mg/dL LDL/HDL Ratio (<4.4) Cholesterol/HDL Ratio (<4.4) Amylase 602 H* (28-100) U/L Lipase 299 H (22-51) U/L TSH (0.34-5.60) uIU/mL Urine Color Urine Clarity (CLEAR) Urine pH (5.0-7.5) PH Ur Specific [place] (1.002-1.030) Urine Protein (NEGATIVE) mg/dL Urine Glucose (UA) (NEGATIVE) mg/dL Urine Ketones (NEGATIVE) mg/dL Urine Occult Blood (NEGATIVE) Urine Nitrite (NEGATIVE) Urine Bilirubin (NEGATIVE) Urine Urobilinogen (NORMAL) E.U./dL Ur Leukocyte Esterase (NEGATIVE) Urine RBC (0-5) /HPF Urine WBC (0-5) /HPF Ur Squamous Epith Cells (<= Few) Urine Bacteria (None Seen) /HPF Urine Culture Comments 04/29/18 04/29/18 Range/Units 17:30 05:25 WBC (4.8-10.8) x10^3/uL RBC (4.20-5.40) 10^6/uL Hgb (12.0-16.0) g/dL Hct (37.0-47.0) % MCV (81.0-99.0) fL MCH (27.0-31.0) pg MCHC (32.0-36.0) g/dL RDW (12.0-15.0) % Plt Count (130-450) 10^3/uL MPV (7.9-10.8) fL Neut # (Auto) (1.5-6.6) 10^3/uL Lymph # (Auto) (1.5-3.5) 10^3/uL Schley # (Auto) (0.0-1.0) 10^3/uL Eos # (Auto) (0.0-0.7) 10^3/uL Baso # (Auto) (0.0-0.1) 10^3/uL Absolute Nucleated RBC x10^3/uL Nucleated RBC % /100WBC Sodium (135-145) mmol/L Potassium (3.5-5.0) mmol/L Chloride (101-111) mmol/L Carbon Dioxide (21-32) mmol/L Anion Gap (6-13) BUN (6-20) mg/dL Creatinine (0.4-1.0) mg/dL Estimated GFR (MDRD) (>89) Glucose (70-100) mg/dL Calcium (8.5-10.3) mg/dL Total Bilirubin (0.2-1.0) mg/dL AST (10-42) IU/L ALT (10-60) IU/L Alkaline Phosphatase (42-121) IU/L Troponin I (<0.49) ng/mL B-Natriuretic Peptide (5-100) pg/mL Total Protein (6.7-8.2) g/dL Albumin (3.2-5.5) g/dL Globulin (2.1-4.2) g/dL Albumin/Globulin Ratio (1.0-2.2) Triglycerides ( - 149) mg/dL Cholesterol ( - 199) mg/dL LDL Cholesterol, Calc ( - 129) mg/dL VLDL Cholesterol mg/dL HDL Cholesterol (60 - ) mg/dL LDL/HDL Ratio (<4.4) Cholesterol/HDL Ratio (<4.4) Amylase 1596 H* (28-100) U/L Lipase (22-51) U/L TSH (0.34-5.60) uIU/mL Urine Color YELLOW Urine Clarity CLEAR (CLEAR) Urine pH 6.5 (5.0-7.5) PH Ur Specific [place] 1.010 (1.002-1.030) Urine Protein NEGATIVE (NEGATIVE) mg/dL Urine Glucose (UA) NEGATIVE (NEGATIVE) mg/dL Urine Ketones NEGATIVE (NEGATIVE) mg/dL Urine Occult Blood NEGATIVE (NEGATIVE) Urine Nitrite NEGATIVE (NEGATIVE) Urine Bilirubin NEGATIVE (NEGATIVE) Urine Urobilinogen 0.2 (NORMAL) (NORMAL) E.U./dL Ur Leukocyte Esterase NEGATIVE (NEGATIVE) Urine RBC None Seen (0-5) /HPF Urine WBC 0-3 (0-5) /HPF Ur Squamous Epith Cells FEW Squamous (<= Few) Urine Bacteria None Seen (None Seen) /HPF Urine Culture Comments NOT INDICATED ABX Reporting Has patient been on IV antibiotics over the past 48 hours?: No Assessment/Plan - Problem List (1) Acute pancreatitis Impression: Conclusion/Plan: 04/30, pt's abdominal pain is controlled, no N/V, and request advance diet. Lipase is down to 300 full liquid diet, slowly advance to low fat diet, called pt's GI doctor, and follow up her GI appointment on next week. 04/29 pt's abdominal is better and controlled. Lipase is down to 1400 from 4800 continue IVF of NS, and clear liquid diet continue pain control continue lab monitor order MRCP per surgeon's recommendation, will follow up surgeon The patient had a similar episode on her last admission, that resolved with IVFs and bowel rest. The patient has since seen a GI specialist at [place], and this group was contacted in the ED for recommendations. An ultrasound was completed and showed a normal gallbladder. The patient has a elevated lipase of 4800. She has known pancreatic cysts, and one of them is near the pancreatic duct, which may be the cause of this episode. She is scheduled to follow up in [place] with a MRCP in May. I have added ursodiol PO BID as her cholesterol is elevated, and is also indicated for gallstone dissolution. I have ordered a MRCP for the AM as this is an acute event and Dr. Shoaib Culver has been consult. I have spoken over the phone, and he suggests a MRCP, which is now ordered. Plan: Daily labs, IVFs, CL diet, await MRCP and pain control. (2) Abdominal pain Conclusion/Plan: resolved 04/29, better control, continue pain control, continue IVF of NS, clear diet The patient states that her abdominal pain began this morning just after consuming her breakfast which is her usual type of food; oatmeal, orange juice, and a cut up apple. Plan: continue to monitor labs, treat pain, and clear liquids for now. (3) Hypertension Conclusion/Plan: The patient has a history of this and is prescribed Norvasc at home, which is now on hold. As per her last echo in December, this medication is the least ideal to treat her HTN since she has LV hypertrophy. A better choice is hydralazine, with spironolactone as she also has pulmonary HTN. I will order a new echo to ensure that her heart function has stayed stable. Plan: Continue IVFs to treat acute pancreatitis and start the 2 suggested meds when tolerating a diet and IVFs are complete. (4) Hypothyroidism Conclusion/Plan: TSH is normal will check TSH, follow up The patient has a history of this and is prescribed Synthroid daily. Her last TSH in December was 2.01, and I will recheck in the AM. Plan: Continue medication and check TSH in the AM. (5) Nausea and vomiting Conclusion/Plan: resolved The patient states that her nausea has been ongoing since the start of her symptoms this morning. She then vomited in the ED x2. Upon exam, she continues to have hiccups, a pre-cursor to vomiting. I have ordered Zofran both IV and SL. Plan: Continue to monitor and give antiemetics. (6) hyponatremia Na is 134, improved chronic condition, today Na is 129 continue IVF of NS, daily check (7)hypocalcemia calcium is 6.5, replace of calcium. re-check calcium this afternoon. follow up today pt's calcium is 6.8. Hypocalcemia is common at acute pancreatitis but associated with poor outcome order MRCP, follow up replacement of Ca daily check (8) Afib with RVR pt developed new onset of Afib with RVR, pt also twice develop 2.8 second pulse block. Now pt's pulse is around 70 now reduced Metoprolol to 25 mg bid continue tele, vital monitor discuss with pt, pt would like to have out-pt mangle tender cloth to evaluate her condition, support her idea Qualifiers: Pancreatitis type: unspecified pancreatitis type Acute pancreatitis complication: no infection or necrosis Qualified Code(s): K85.90 - Acute pancreatitis without necrosis or infection, unspecified
[2018-05-01] MEDS: SODIUM CHLORIDE FLUSH 0.9% 10 ML SYRINGE IVP SCH ×2 (01:43→12:06)
[2018-05-01 05:47] LABS: BASOPHILS % (AUTO) 0.1 %; EOSINOPHILS # (AUTO) 0.1 10^3/uL (0.0-0.7); EOSINOPHILS % (AUTO) 0.5 %; HGB - HEMOGLOBIN 12.4 g/dL (12.0-16.0); LYMPHOCYTES # (AUTO) 0.6 10^3/uL (1.5-3.5); LYMPHOCYTES % (AUTO) 4.1 %; MEAN CORPUSCULAR HGB CONC 34.1 g/dL (32.0-36.0); MEAN CORPUSCULAR VOLUME 93.7 fL (81.0-99.0); MEAN PLATELET VOLUME 8.9 fL (7.9-10.8); MONOCYTES # (AUTO) 1.2 10^3/uL (0.0-1.0); MONOCYTES % (AUTO) 7.4 %; NEUTROPHILS # (AUTO) 13.9 10^3/uL (1.5-6.6); NEUTROPHILS % (AUTO) 87.9 %; PLT - PLATELET COUNT 199 10^3/uL (130-450); RED BLOOD COUNT 3.87 10^6/uL (4.20-5.40); RED CELL DISTRIBUTION WIDTH 13.4 % (12.0-15.0); WHITE BLOOD COUNT 15.8 x10^3/uL (4.8-10.8)
[2018-05-01 06:03] LABS: ALBUMIN 2.8 g/dL (3.2-5.5); BILIRUBIN,TOTAL 0.7 mg/dL (0.2-1.0); CREATININE 0.5 mg/dL (0.4-1.0); TOTAL PROTEIN 5.5 g/dL (6.7-8.2)
[2018-05-01] MEDS: LEVOTHYROXINE 25 MCG TABLET PO SCH (06:40)
[2018-05-01 08:05] VITALS: BP 145/56
[2018-05-01] MEDS ORDERED: POTASSIUM CHLORIDE 20 MEQ TABLET PO SCH (08:19)
[2018-05-01] MEDS ORDERED: IBUPROFEN 400 MG TABLET PO PRN (09:14)
[2018-05-01] MEDS: PANTOPRAZOLE 40 MG VIAL IVP SCH (09:39)
[2018-05-01] MEDS: URSODIOL 250 MG TABLET PO SCH (09:40)
[2018-05-01] MEDS: POLYETHYLENE GLYCOL 3350 17 GM PACKET PO SCH (10:09)
[2018-05-01] MEDS: METOPROLOL TARTRATE 50 MG TABLET PO SCH (10:09)
[2018-05-01] MEDS: amLODIPine 5 MG TABLET PO SCH (10:09)
--- NOTE | 2018-05-01 10:13 | Discharge Plan ---
Discharge Plan Disposition: 01 Home, Self Care Condition: Poor Diet: Cardiac Activity Restrictions: Activity as Tolerated Shower Restrictions: No (fall precaution) Instruction Topics: Pancreatitis Additional Instructions or Follow Up instructions: You may follow up your PCP in one week, and follow up your tanbark peeler in one week. I already called your tanbark peeler, please follow up in one week. Should your symptoms return or worsen, you may present ER or call 911 for help. No Smoking: If you smoke, Please STOP! Call for help. Follow-up with: Dionisio Dubois MD [Primary Care Provider] -
--- NOTE | 2018-05-01 10:18 | DISCHARGE SUMMARY ---
"Discharge Summary Discharge Date: 05/01/18 Discharging Provider: DAVALOS Primary Care Provider: DR. Duobis Condition at Discharge: Poor Discharge Disposition: 01 Home, Self Care Discharge Facility Name: home - DIAGNOSES Admission Diagnoses: (1) Acute pancreatitis (2) Abdominal pain (3) Hypertension (4) Hypothyroidism (5) Pulmonary hypertension (6) Nausea and vomiting (7) Nodule of right lung Discharge Diagnoses with Status of Each Condition: (1) Acute pancreatitis resolved. Pt state no abdominal pain. pt tolerate diet. Lipase is down to 68. pt had MRCP yesterday. There is concern of growth of IPMN. I called and reported all findings to pt's GI doctor. Pt is advised to see her GI doctor in one week. (2) Abdominal pain resolved (3) Hypertension stable, follow up PCP management (4) Hypothyroidism stable (5) Nausea and vomiting resolved (6) hyponatremia chronic , stable (7)hypocalcemia chronic, stable (8) Afib with RVR resolved. pt had one day of afib with RVR. today it is totally resolved (9) Nodule of right lung it was found on last admission, pt was known of this findings, and will follow up monitor - HPI History of Present Illness: refer from Ms. Lyse's HPI for pt as the following: Dora Del Rio is a very pleasant 82-year-old white female with a past medical history of recurrent pancreatitis, hypertension, short term memory loss, and pulmonary hypertension. She presented to the ED today with a primary complaint of abdominal pain that began earlier today. The pain was in her upper abdomen, sharp, aching, radiated to her upper back, and was accompanied by loss of appetite, nausea, vomiting, and she recalls feeling similar the last time she had pancreatitis in the spring. Her labs show a lipase that is very elevated at 4800, an elevated WBC count at 14.0, elevated H/H at 16.1 and 47.4, a normal MCV, elevated neutorphils, a low sodium of 131, a low chloride of 95, and an elevated glucose of 122. She is noted to be mildly hypertensive with a blood pressure of 142/60. A ultrasound was obtained in the ED, that showed no gallbladder issues. The patient denies shortness of breath, jaundice, changes in bowels, diarrhea, weight loss, fatigue, recent illness, recent travel, syncope, chest pain, or insomnia. A consult to [facility], GI, Dr. Dennison was made as the patient has been seen there lately and suggests to treat symptoms and monitor. The patient will be admitted to an inpatient bed, treated with IV fluids, treat pain, and routine labs. She will be on clear liquids. General surgery may be consulted for their recommendations. - CONSULTS | PROCEDURES Consultations: Dr. Shoaib Culver Procedures: no - ALLERGIES Allergies/Adverse Reactions: Allergies Allergy/AdvReac Type Severity Reaction Status Date / Time No Known Drug Allergies Allergy Verified 04/28/18 10:50 - MEDICATIONS Home Medications: Ambulatory Orders Medication Instructions Recorded Confirmed Aspirin 81 mg PO DAILY 01/08/18 04/28/18 Levothyroxine [Synthroid] 50 mcg PO QDAC 01/08/18 04/28/18 amLODIPine [Norvasc] 5 mg PO DAILY #30 tablet 01/09/18 04/28/18 - PHYSICAL EXAM AT DISCHARGE General Appearance: positive: No acute distress, Alert. negative: Lethargic Eyes Bilateral: positive: Normal inspection, PERRL, No lid inflammation, Conjunctivae nml ENT: positive: ENT inspection nml, Pharynx nml, No signs of dehydration. negative: Purulent nasal drainage, Pharyngeal erythema, Oral lesions Neck: positive: Nml inspection, Thyroid nml, No JVD, Trachea midline. negative : Thyromegaly, Lymphadenopathy (R), Lymphadenopathy (L), Stiff neck, Carotid bruit, Swelling/bruising, Tracheal deviation Respiratory: positive: Chest non-tender, No respiratory distress, Breath sounds nml. negative: Wheezes, Rales, Rhonchi Cardiovascular: positive: Regular rate & rhythm, No murmur, No gallop. negative : Irregularly irregular, Extrasystoles, Tachycardia, Bradycardia, JVD present, Systolic murmur, Diastolic murmur Peripheral Pulses: positive: 2+ Abdomen: positive: Non-tender, No organomegaly, Nml bowel sounds, No distention. negative: Tenderness, Guarding, Rebound Back: positive: Nml inspection. negative: CVA tenderness (R), CVA tenderness (L ) Skin: positive: Color nml, No rash, Warm, Dry. negative: Cyanosis, Diaphoresis , Pallor Extremities: positive: Non-tender, Full ROM, Nml appearance. negative: Calf tenderness, Joint swelling, Vick's sign/cords Neurologic/Psychiatric: positive: Oriented x3, Motor nml, Sensation nml, Mood/ affect nml. negative: Weakness, Sensory loss, Facial droop, Slurred/abnml speech, Depressed mood/affect - LABS Result Diagrams: 05/01/18 05:12 05/01/18 05:12 - FOLLOW UP Follow Up: You may follow up your PCP in one week, and follow up your technical services manager in one week. I already called your technical services manager, please follow up in one week. Should your symptoms return or worsen, you may present ER or call 911 for help. - TIME SPENT Time Spent in Discharge (Minutes): 50"
[2018-05-01] MEDS ORDERED: CALCIUM CITRATE 250 MG TABLET PO SCH (12:00)
== END 2018-05-01 12:35 | disposition home or self-care (01) | DRG 391 ==
LOC: ED 10:37 → MS2 14:02
PROVIDERS: ADMIT Nurse Practitioner; ATTEND Nurse Practitioner Gerontology
DX: R10.30 Lower abdominal pain, unspecified (principal); K85.90 Acute pancreatitis without necrosis or infection, unspecified; K86.2 Cyst of pancreas; E87.1 Hypo-osmolality and hyponatremia; I10 Essential (primary) hypertension; I27.20 Pulmonary hypertension, unspecified; F03.90 Unspecified dementia, unspecified severity, without behavioral disturbance, psychotic disturbance, mood disturbance, and anxiety; E03.9 Hypothyroidism, unspecified; Z66 Do not resuscitate; E83.51 Hypocalcemia
CPT/HCPCS: 36415; 74181; 76705; 80053; 80061; 81001; 82150; 82310; 83690; 83721; 83880; 84443; 84484; 85025; 87086; 93005; 93306; 96361; 96374; 96375; 96376; 99284

== ENCOUNTER 2018-10-05 12:01 | Emergency (ER) | payer MEDICARE, OTHER ==
[2018-10-05 12:38] LABS: BASOPHILS # (AUTO) 0.1 10^3/uL (0.0-0.1); BASOPHILS % (AUTO) 1.1 %; EOSINOPHILS # (AUTO) 0.3 10^3/uL (0.0-0.7); EOSINOPHILS % (AUTO) 2.8 %; HGB - HEMOGLOBIN 14.9 g/dL (12.0-16.0); LYMPHOCYTES # (AUTO) 1.1 10^3/uL (1.5-3.5); LYMPHOCYTES % (AUTO) 10.1 %; MEAN CORPUSCULAR HEMOGLOBIN 32.7 pg (27.0-31.0); MEAN CORPUSCULAR HGB CONC 35.1 g/dL (32.0-36.0); MEAN CORPUSCULAR VOLUME 93.2 fL (81.0-99.0); MEAN PLATELET VOLUME 8.1 fL (7.9-10.8); MONOCYTES # (AUTO) 0.6 10^3/uL (0.0-1.0); NEUTROPHILS # (AUTO) 8.5 10^3/uL (1.5-6.6); PLT - PLATELET COUNT 259 10^3/uL (130-450); RED BLOOD COUNT 4.56 10^6/uL (4.20-5.40); RED CELL DISTRIBUTION WIDTH 12.7 % (12.0-15.0); WHITE BLOOD COUNT 10.7 x10^3/uL (4.8-10.8)
[2018-10-05 13:00] LABS: BILIRUBIN,URINE NEGATIVE (NEGATIVE); GLUCOSE, URINE (UA) NEGATIVE (NEGATIVE); KETONES,URINE (UA) NEGATIVE (NEGATIVE); LEUKOCYTE ESTERASE, URINE TRACE (NEGATIVE); NITRITE,URINE NEGATIVE (NEGATIVE); OCCULT BLOOD,URINE NEGATIVE (NEGATIVE); PH,URINE 7.5 PH (5.0-7.5); PROTEIN,URINE NEGATIVE (NEGATIVE); UROBILINOGEN,URINE 0.2 (NORMAL) E.U./dL (NORMAL)
[2018-10-05 13:04] LABS: CLARITY,URINE CLEAR (CLEAR)
[2018-10-05 13:09] LABS: ALBUMIN 4.2 g/dL (3.2-5.5); ALBUMIN/GLOBULIN RATIO 1.4 (1.0-2.2); BILIRUBIN,TOTAL 0.7 mg/dL (0.2-1.0); CALCIUM 9.1 mg/dL (8.5-10.3); CREATININE 0.5 mg/dL (0.4-1.0); TOTAL PROTEIN 7.3 g/dL (6.7-8.2)
--- NOTE | 2018-10-05 13:18 | ED Physician Documentation ---
PD HPI ABD PAIN - Stated complaint Stated Complaint: ABD/BACK PX - Chief complaint Chief Complaint: General - History obtained from History obtained from: Patient - History of Present Illness Timing - onset: How many hours ago (1) Timing - duration: Hours (1) Timing - details: Abrupt onset (had abrupt onset severe upper abd to back pain associated with nausea. No change with position. Deep breath did hurt. [place] similar to pancreatitis episodes in the past but was much more abrupt and severe. Enroute to here, it started to suddently feel better coming into hospital and is having minimal to no pain at time of my exam.) Quality: Aching, Sharp, Pain Location: RUQ, Epigastric Radiation: Upper back Improved by: No: Laying still Worsened by: Moving, Breathing, Palpation Associated symptoms: Nausea, Loss of appetite. No: Fever, Vomiting, Diarrhea Similar symptoms before: Diagnosis (pancreatitis due to gallbladder but still with gallbladder, yet the current episode was much more abrupt and severe than prior episodes.) Recently seen: Not recently seen Review of Systems Constitutional: denies: Fever, Chills, Myalgias Nose: denies: Rhinorrhea / runny nose, Congestion Throat: denies: Sore throat Cardiac: denies: Chest pain / pressure, Palpitations Respiratory: denies: Dyspnea, Cough GI: reports: Abdominal Pain, Nausea. 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 : None HEENT: Chronic vision loss Psych: Depression, Anxiety Musculoskeletal: None Derm: None - Past Surgical History General: Appendectomy /MECHANICAL DESIGN TECHNICIAN: Other HEENT: Cataracts, Tonsil/Adenoidectomy - Present Medications Home Medications: Ambulatory Orders Medication Instructions Recorded Confirmed Aspirin 81 mg PO DAILY 01/08/18 04/28/18 Levothyroxine [Synthroid] 50 mcg PO QDAC 01/08/18 04/28/18 amLODIPine [Norvasc] 5 mg PO DAILY #30 tablet 01/09/18 04/28/18 Hydrocodone/Acetaminophen [[place] 1 each PO Q6H PRN #15 tablet 10/05/18 5-325 Tablet] Naproxen 375 mg PO BID #20 tablet 10/05/18 - Allergies Allergies/Adverse Reactions: Allergies Allergy/AdvReac Type Severity Reaction Status Date / Time No Known Drug Allergies Allergy Verified 10/05/18 12:11 - Social History Does the pt smoke?: No Smoking Status: Never smoker Does the pt drink ETOH?: No Does the pt have substance abuse?: No - Immunizations Immunizations are current?: Yes - POLST Patient has POLST: No POLST Status: DNR PD ED PE NORMAL - Vitals Vital signs reviewed: Yes - General General: Alert and oriented X 3, No acute distress, Well developed/nourished - HEENT HEENT: Ears normal, Moist mucous membranes, Pharynx benign - Neck Neck: Supple, no meningeal sign, No adenopathy - Cardiac Cardiac: RRR, No murmur - Respiratory Respiratory: Clear bilaterally - Abdomen Abdomen: Normal bowel sounds, Non tender, Non distended, No organomegaly - Female Female : Deferred - Rectal Rectal: Deferred - Back Back: No CVA TTP - Derm Derm: Normal color, Warm and dry, No rash - Extremities Extremities: No deformity, No tenderness to palpate, Normal ROM s pain, No edema, No calf tenderness / cord - Neuro Neuro: Alert and oriented X 3, No motor deficit, Normal speech Results - Vitals Vitals: Vital Signs - 24 hr 10/05/18 10/05/18 10/05/18 12:03 13:03 14:56 Temperature 36 C L Heart Rate 63 64 63 Respiratory 16 16 18 Rate Blood Pressure 167/77 H 163/73 H 149/68 H O2 Saturation 100 98 98 Oxygen O2 Source Room air - Labs Labs: Laboratory Tests 10/05/18 10/05/18 10/05/18 12:29 12:29 12:52 WBC 10.7 RBC 4.56 Hgb 14.9 Hct 42.5 MCV 93.2 MCH 32.7 H MCHC 35.1 RDW 12.7 Plt Count 259 MPV 8.1 Neut # (Auto) 8.5 H Lymph # (Auto) 1.1 L [place] # (Auto) 0.6 Eos # (Auto) 0.3 Baso # (Auto) 0.1 Absolute Nucleated RBC 0.00 Nucleated RBC % 0.0 Sodium 133 L Potassium 4.2 Chloride 95 L Carbon Dioxide 28 Anion Gap 10.0 BUN 17 Creatinine 0.5 Estimated GFR (MDRD) 118 Glucose 112 H Calcium 9.1 Total Bilirubin 0.7 AST 24 ALT 23 Alkaline Phosphatase 60 Total Protein 7.3 Albumin 4.2 Globulin 3.1 Albumin/Globulin Ratio 1.4 Lipase 3420 H Urine Color YELLOW Urine Clarity CLEAR Urine pH 7.5 Ur Specific [place] 1.010 Urine Protein NEGATIVE Urine Glucose (UA) NEGATIVE Urine Ketones NEGATIVE Urine Occult Blood NEGATIVE Urine Nitrite NEGATIVE Urine Bilirubin NEGATIVE Urine Urobilinogen 0.2 (NORMAL) Ur Leukocyte Esterase TRACE H Urine RBC None Seen Urine WBC 6-10 H Ur Squamous Epith Cells RARE Squamous Urine Bacteria Rare Ur Microscopic Review INDICATED Urine Culture Comments INDICATED PD MEDICAL DECISION MAKING - ED course Complexity details: considered differential (given the abruptness of pain and then resolution as quickly, with elevated lipase, I would presume some pancreatic duct blockage that then resolved. Not likely CBD since LFTs and alk phos not abnormal. Consider kidney stone but pain was really upper abd. ), d/w patient Departure - Departure Disposition: Home, Self Care Clinical Impression: Upper abdominal pain Acute pancreatitis Qualifiers: Pancreatitis type: biliary Acute pancreatitis complication: unspecified Qualified Code(s): K85.10 - Biliary acute pancreatitis without necrosis or infection Condition: Stable Record reviewed to determine appropriate education?: Yes Instructions: ED Pancreatitis Follow-Up: Dionisio Dubois MD [Primary Care Provider] - Prescriptions: Hydrocodone/Acetaminophen [[place] 5-325 Tablet] 1 each PO Q6H PRN #15 tablet PRN Reason: Pain Naproxen 375 mg PO BID #20 tablet Comments: Your lipase is quite elevated. However your pain pattern of abruptly on now better is suggestive of a brief blockage of the duct. Since you are doing better at this time, we can try treatment at home with clear liquids and bland food and naproxen twice daily and add Tylenol or hydrocodone if needed for pain. Follow-up with your primary care in 2-3 days for recheck of your blood tests in particular the lipase to ensure its improving. Return if worse symptoms. Discharge Date/Time: 10/05/18 14:57
[2018-10-05 13:20] LABS: BACTERIA,URINE Rare /HPF (None Seen); RBC,URINE None Seen /HPF (0-5); SQUAMOUS EPITHELIAL CELL,UR RARE Squamous (<= Few)
[2018-10-05] MEDS: HYDROcod/ACETAM 5/325 MG TABLET PO STA (14:09)
[2018-10-05] MEDS: NAPROXEN 250 MG TABLET PO STA (14:09)
[2018-10-05 14:57] VITALS: BP 149/68
== END 2018-10-05 14:57 | disposition home or self-care (01) ==
LOC: ED 12:01
DX: R10.11 Right upper quadrant pain (principal); K85.10 Biliary acute pancreatitis without necrosis or infection; R74.8 Abnormal levels of other serum enzymes; I10 Essential (primary) hypertension; F03.90 Unspecified dementia, unspecified severity, without behavioral disturbance, psychotic disturbance, mood disturbance, and anxiety; Z79.82 Long term (current) use of aspirin
CPT/HCPCS: 36415; 80053; 81001; 81003; 83690; 85025; 87086; 99283

== ENCOUNTER 2020-12-04 14:48 | Outpatient (CLI) | payer MEDICARE, OTHER ==
[2020-12-07 10:47] LABS: NIL 0.02 IU/mL; TB1-NIL 0.01 IU/mL; TB2-NIL 0.01 IU/mL
== END 2020-12-04 14:49 | disposition home or self-care (01) ==
LOC: LAB.S 14:48
PROVIDERS: ATTEND Nurse Practitioner Family
DX: Z11.1 Encounter for screening for respiratory tuberculosis (principal)
CPT/HCPCS: 36415; 86480